=== PATIENT | male | born 1940 | race African-American/Black ===

== ENCOUNTER 2020-11-11 09:32 | Inpatient (IN) | payer MEDICARE ==
[~2020-11-11] VITALS: Ht 188 cm; Wt 81.6 kg
[2020-11-11] VITALS (8 sets, daily range): BP systolic 96–148; BP diastolic 55–78
[2020-11-11] MEDS ORDERED: Pantoprazole Inj IVP ONE (09:45)
[2020-11-11 09:53] LABS: BASOPHILS % (AUTO) 1.5 % (0.0-2.0); EOSINOPHILS % (AUTO) 1.9 % (0.0-3.0); HEMATOCRIT 38.1 % (42.0-52.0); HEMOGLOBIN 11.9 G/DL (14.2-18.0); LYMPHOCYTES % (AUTO) 51.1 % (20.0-45.0); MEAN CORPUSCULAR VOLUME 88 FL (80-99); MONOCYTES % (AUTO) 4.9 % (1.0-10.0); NEUTROPHILS % (AUTO) 40.6 % (45.0-75.0); PLATELET COUNT 253 K/UL (150-450); RED BLOOD COUNT 4.31 M/UL (4.70-6.10); RED CELL DISTRIBUTION WIDTH 15.9 % (11.6-14.8); WHITE BLOOD COUNT 7.6 K/UL (4.8-10.8)
[2020-11-11] MEDS ORDERED: PROSCAR5 MG ORAL (10:02)
[2020-11-11] MEDS ORDERED: ASPIRIN81 MG ORAL (10:02)
[2020-11-11] MEDS ORDERED: LOSARTAN POTASS50 MG ORAL (10:02)
[2020-11-11] MEDS ORDERED: AMLODIPINE BESY10 MG ORAL (10:02)
[2020-11-11] MEDS ORDERED: LEVETIRACETAM500 MG ORAL (10:02)
[2020-11-11] MEDS ORDERED: ACETAMINOPHEN325 M1 ORAL (10:02)
[2020-11-11 10:06] LABS: CALCIUM 8.8 MG/DL (8.5-10.1); CREATININE 2.6 MG/DL (0.55-1.30); POTASSIUM 4.1 MMOL/L (3.5-5.1)
[2020-11-11 10:10] LABS: ALBUMIN 2.5 G/DL (3.4-5.0); ALBUMIN/GLOBULIN RATIO 0.6 (1.0-2.7); BILIRUBIN,TOTAL 0.3 MG/DL (0.2-1.0)
--- NOTE | 2020-11-11 10:27 | Emergency Room Report ---
History of Present Illness General Chief Complaint: General Complaint Source: Patient, Medical Record, EMS Present Illness HPI 79-year-old male presents for evaluation. [facility] with rectal bleeding and coffee-ground emesis. Bright red blood per rectum per nursing. Patient confused per baseline. No signs of distress on arrival. No chest pain or shortness of breath. No active vomiting. No history of blood thinners. Aggravating or relieving factors. No other associated symptoms Allergies: Coded Allergies: CODEINE (Verified Allergy, Unknown, 11/11/20) COVID-19 Screening Contact w/high risk pt: No Experienced COVID-19 symptoms?: No COVID-19 Testing performed BELT CLEANER: No Patient History Past Medical History: none Past Surgical History: none Pertinent Family History: none Social History: Denies: smoking, alcohol use, drug use Immunizations: UTD Reviewed Nursing Documentation: PMH: Agreed; PSxH: Agreed Review of Systems All Other Systems: negative except mentioned in HPI Physical Exam Vital Signs Date Time Temp Pulse Resp B/P (MAP) Pulse Ox O2 Delivery O2 Flow Rate FiO2 11/11/20 09:47 97.9 58 18 87/61 (70) 98 Room Air Sp02 EP Interpretation: reviewed, normal General Appearance: no apparent distress, non-toxic, other - confused Head: normocephalic, atraumatic Eyes: bilateral eye normal inspection, bilateral eye PERRL ENT: hearing grossly normal, normal pharynx, no angioedema, normal voice Neck: full range of motion, supple/symm/no masses Respiratory: chest non-tender, lungs clear, normal breath sounds, speaking full sentences Cardiovascular #1: regular rate, rhythm, no edema Cardiovascular #2: 2+ carotid (R), 2+ carotid (L), 2+ radial (R), 2+ radial (L), 2+ dorsalis pedis (R), 2+ dorsalis pedis (L) Gastrointestinal: normal bowel sounds, non tender, soft, non-distended, no guarding, no rebound Rectal: deferred Genitourinary: normal inspection, no CVA tenderness Musculoskeletal: back normal, normal range of motion, gait/station normal, non- tender Neurologic: other - Confused Psychiatric: other - Confused Reflexes: 3+ bicep (R), 3+ bicep (L), 3+ tricep (R), 3+ tricep (L), 3+ knee (R), 3+ knee (L) Skin: other - see nursing notes Lymphatic: no adenopathy Medical Decision Making Diagnostic Impression: Primary Impression: GI bleed Qualified Codes: K92.2 - Gastrointestinal hemorrhage, unspecified Additional Impression: Renal failure Qualified Codes: N19 - Unspecified kidney failure ER Course Hospital Course 79-year-old male presents with bright red blood per rectum, coffee-ground emesis Differential diagnoses include: UGIB, LGIB, hemorrhoids Clinical course Patient placed on stretcher. patient monitor. After initial history and physical I ordered labs, IV fluids, UA Labs - no leukocytosis, Hb/Hct stable. BUN/Cr elevated. UA unremarkable EKGsinus bradycardia no acute ischemic changes interpreted by me With IV fluids. Given Protonix. Given Zofran. Case discussed with Dr. Nur and he agreed to accept the patient to his service for further care and support I feel this is a highly complex case requiring extensive working including EKG/ Rhythm strip, Xray/CT/US, Blood/urine lab work, repeat exams while in ED, and administration of strong opiates/narcotics for pain control, admission to hospital or close patient follow up. Diagnosis - GI Bleed, Renal failure Patient admitted to telemetry in serious condition Laboratory Tests Test 11/11/20 09:41 11/11/20 11:10 White Blood Count 7.6 K/UL (4.8-10.8) Red Blood Count 4.31 M/UL (4.70-6.10) L Hemoglobin 11.9 G/DL (14.2-18.0) L Hematocrit 38.1 % (42.0-52.0) L Mean Corpuscular Volume 88 FL (80-99) Mean Corpuscular Hemoglobin 27.5 PG (27.0-31.0) Mean Corpuscular Hemoglobin Concent 31.1 G/DL (32.0-36.0) L Red Cell Distribution Width 15.9 % (11.6-14.8) H Platelet Count 253 K/UL (150-450) Mean Platelet Volume 7.0 FL (6.5-10.1) Neutrophils (%) (Auto) 40.6 % (45.0-75.0) L Lymphocytes (%) (Auto) 51.1 % (20.0-45.0) H Monocytes (%) (Auto) 4.9 % (1.0-10.0) Eosinophils (%) (Auto) 1.9 % (0.0-3.0) Basophils (%) (Auto) 1.5 % (0.0-2.0) Sodium Level 142 MMOL/L (136-145) Potassium Level 4.1 MMOL/L (3.5-5.1) Chloride Level 107 MMOL/L (98-107) Carbon Dioxide Level 25 MMOL/L (21-32) Anion Gap 10 mmol/L (5-15) Blood Urea Nitrogen 43 mg/dL (7-18) H Creatinine 2.6 MG/DL (0.55-1.30) H Estimat Glomerular Filtration Rate 23.9 mL/min (>60) Glucose Level 145 MG/DL (74-106) H Calcium Level 8.8 MG/DL (8.5-10.1) Total Bilirubin 0.3 MG/DL (0.2-1.0) Aspartate Amino Transf (AST/SGOT) 16 U/L (15-37) Alanine Aminotransferase (ALT/SGPT) 22 U/L (12-78) Alkaline Phosphatase 61 U/L (46-116) Troponin I 0.019 ng/mL (0.000-0.056) Total Protein 7.0 G/DL (6.4-8.2) Albumin 2.5 G/DL (3.4-5.0) L Globulin 4.5 g/dL Albumin/Globulin Ratio 0.6 (1.0-2.7) L Lipase 167 U/L (73-393) Prothrombin Time 11.8 SEC (9.30-11.50) H Prothromb Time International Ratio 1.1 (0.9-1.1) Activated Partial Thromboplast Time 28 SEC (23-33) EKG Diagnostic Results Troponin ordered: Yes Rate: bradycardiac Rhythm: NSR ST Segments: no acute changes Rhythm Strip Diag. Results EP Interpretation: yes Rhythm: NSR, no PVC's, no ectopy Last Vital Signs Date Time Temp Pulse Resp B/P (MAP) Pulse Ox O2 Delivery O2 Flow Rate FiO2 11/11/20 10:09 62 18 99/55 98 Room Air 11/11/20 09:47 97.9 Status: improved Disposition: ADMITTED INPATIENT Condition: Serious Loy Saxena MD Nov 11, 2020 10:27
--- NOTE | 2020-11-11 10:39 | NUR ---
Patient presented to the ER via EMS for evaluation from a [facility] facility. They reported that he started vomiting blood this morning. He reports with coffee ground emesis and retal bleeding. Patient confused per baseline. No signs of distress on arrival. No chest pain or shortness of breath. No active vomiting. No history of blood thinners. No aggravating or relieving factors.
--- NOTE | 2020-11-11 10:41 | NUR ---
lab called, blue top hemolyzed. new one redrawn and sent to lab. pt on continuous cardiac/O2 monitor. VSS. will continue to monitor.
[2020-11-11 11:33] LABS: INR 1.1 (0.9-1.1)
[2020-11-11] MEDS: D5NS 1,000 ML IV SCH ×3 (13:51→21:31)
--- NOTE | 2020-11-11 13:51 | Consultation ---
History of Present Illness General Date patient seen: Nov 11, 2020 Reason for Hospitalization: General Complaint Present Illness HPI 79-year-old very pleasant male presented to [facility] from care facility identified to have coffee-ground emesis and GI bleed. Hemoglobin noted. Abdominal exam as below. Surgery called to evaluate for GI bleed and assist with care. Patient seen, patient evaluated, chart reviewed. states he is well. no complaints no n/v/f/c abd pain neg chest pain neg Allergies: Coded Allergies: CODEINE (Verified Allergy, Unknown, 11/11/20) COVID-19 Screening Contact w/high risk pt: No Experienced COVID-19 symptoms?: No Medication History Scheduled Amlodipine Besylate* (Amlodipine Besylate*), 10 MG ORAL DAILY, (Reported) Aspirin* (Aspirin*), 81 MG ORAL DAILY, (Reported) Finasteride* (Proscar*), 5 MG ORAL DAILY, (Reported) Levetiracetam* (Levetiracetam*), 750 MG ORAL TWICE A DAY, (Reported) Losartan Potassium* (Losartan Potassium*), 100 MG ORAL DAILY, (Reported) Scheduled PRN Acetaminophen* (Acetaminophen 325MG Tablet*), 650 MG ORAL Q4H PRN for Pain Scale (3-5), (Reported) Patient History Limited by: medical condition History Provided By: Medical Record, PMD Healthcare decision maker Resuscitation status Advanced Directive on File Past Medical/Surgical History Past Medical/Surgical History: (1) Renal failure (2) GI bleed Review of Systems Review of Symptoms -J-s-e-e-r-a-l- -R-O-S-:- -n-o- -w-e--i-g-h-t- -l-o-s-s- -o-r- -f-e-v-e-r- -L-k-z-r-u-a-v-w-i-i-c-a-l- -R-O-S-:- -n-o- -q-q-i-q-r-q-s-i-o-n- -o-r- -m-o-o-d- -w-i-l-n-g-e-s-,- -n-o- -p-b-s-o-r-y- -l-o-s-s- -Z-w-r--k-i-y-l-m-i-c- -R-O-S-:- -n-o- -z-x-s-u-a-l- -z-y-b-n-g-e-s- -o-r- -e-y-e- -r-t-h-b-r-z-t-i-o-n- -E-N-T- -R-O-S-:- -n-o- -n-a-s-a-l- -c-n-d-r-h-p-t-i-o-n-,- -n-j-f-r-i-n-g- -l- -o-s-s-,- -r-o-c-r-k-b-e-s-s- -C-z-s-e-r-g-y- -a-n-d- -M-f-i-q-p-b-l-o-g-y- -R-O-S-:- -n-o- -g-i-d-e-r-g-i-c- -e-s-q-p-t-o-m-s- -o-r- -b-t-e-u-t-g-r-i-a- -L-v-s-e-e-q-b-w-j-i--c-a-l- -a-n-d- -P-b-h-r-h-i-t-i-c- -R-O-S-:- -n-o- -x-o-h-l-l-e-n- -b-o-u-n-d-s-,- -y-y-f-s-u-a-l- -u-e-y-e-d-i-n-g- -o-r- -v-t-j-i-s-i-n-g- -S-j-u-g-r-x-i-n-e- -R-O-S-:- -n-o- -g-s-i-y-u-r-i-a-,- -k-f-s-p-u-c-p-s-i-a-,- -n-t-q-g-h-t- -g-l-t-n-g-e-s-,- -e-u-u-x-m-c-a-t-u-r-e- -r-h-e-d-o-g-r-a-n-c-e- -C-k-w-m-x-q-a-t-o-r-y- -R-O-S-:- -n-o- -c-o-u-g-h-,- -l-n-o-p-d-p-e-s-s- -o--f- -e-j-s-a-t-h-,- -o-r- -z-l-r-e-z-i-n-g- -X-i-y-g-d-q-n-x-z-c-u-l-a-r- -R-O-S-:- -n-o- -c-h-e-s-t- -p-a-i-n- -o-r- -r-a-e-p-n-e-a- -o-n- -g-k-o-r-t-i-o-n- -K-q-s-c-f-v-i-n--p-c-p-t-i-n-a-l- -R-O-S-:- -b-p-t-i-e-s- -n-t-l-f-r-h-n-a-l- -p-a-i-n-,- -u-b-k-g-h-t- -r-e-d- -b-l-o-o-d- -i-n- -s-t-o-o-l-.- -H-k-i-a-a-m-v-n-e-h-x-e-t-a-l- -R-O-S-:- -n-o- -m-t-k-l-g-i-a-s- -o-r- -o-j-q-b-h-c-l-g-i-a-s- -O-d-q-z-c-c-k-h-x-c-a-l- -R-O-S-:- -n-o- -T-I-A- -o-r- -q-l-z-o-k-e- -g-j-t-p-t-o-m-s- -H-g-h-o-x-b-g-d-h-g-i-c-a-l- -R-O-S-:- -n-o- -n-e-w- -o-r- -e-j-m-n-g-i-n-g- -s-k-i-n- -x-s-j-i-o-n-s-,- -u-y-g-h-e-s- -o-r- -j-m-i-r-i-t-i-s- limited given condition Physical Exam Physical Exam General appearance: alert, cooperative, no distress, appears stated age Head: Normocephalic, without obvious abnormality, atraumatic Eyes: conjunctivae/corneas clear. PERRL, EOM's intact. Fundi benign Throat: Lips, mucosa, and tongue normal. Teeth and gums normal Neck: supple, symmetrical, trachea midline, no adenopathy, thyroid: not enlarged, symmetric, no tenderness/mass/nodules, no carotid bruit and no JVD Lungs: clear to auscultation bilaterally Heart: regular rate and rhythm, S1, S2 normal, no murmur, click, rub or gallop Abdomen: soft, non-tender. Bowel sounds normal. No masses, no organomegaly Extremities: extremities normal, atraumatic, no cyanosis or edema Pulses: 2+ and symmetric Skin: Skin color, texture, turgor normal. No rashes or lesions Neurologic: Grossly normal Last 24 Hour Vital Signs Date Time Temp Pulse Resp B/P (MAP) Pulse Ox O2 Delivery O2 Flow Rate FiO2 11/11/20 12:50 110/62 95 Room Air 11/11/20 12:05 61 101/64 11/11/20 11:01 98.4 60 96/60 11/11/20 10:09 62 18 99/55 98 Room Air 11/11/20 09:47 97.9 58 18 87/61 (70) 98 Room Air Laboratory Tests Test 11/11/20 09:41 11/11/20 11:10 White Blood Count 7.6 K/UL (4.8-10.8) Red Blood Count 4.31 M/UL (4.70-6.10) L Hemoglobin 11.9 G/DL (14.2-18.0) L Hematocrit 38.1 % (42.0-52.0) L Mean Corpuscular Volume 88 FL (80-99) Mean Corpuscular Hemoglobin 27.5 PG (27.0-31.0) Mean Corpuscular Hemoglobin Concent 31.1 G/DL (32.0-36.0) L Red Cell Distribution Width 15.9 % (11.6-14.8) H Platelet Count 253 K/UL (150-450) Mean Platelet Volume 7.0 FL (6.5-10.1) Neutrophils (%) (Auto) 40.6 % (45.0-75.0) L Lymphocytes (%) (Auto) 51.1 % (20.0-45.0) H Monocytes (%) (Auto) 4.9 % (1.0-10.0) Eosinophils (%) (Auto) 1.9 % (0.0-3.0) Basophils (%) (Auto) 1.5 % (0.0-2.0) Sodium Level 142 MMOL/L (136-145) Potassium Level 4.1 MMOL/L (3.5-5.1) Chloride Level 107 MMOL/L (98-107) Carbon Dioxide Level 25 MMOL/L (21-32) Anion Gap 10 mmol/L (5-15) Blood Urea Nitrogen 43 mg/dL (7-18) H Creatinine 2.6 MG/DL (0.55-1.30) H Estimat Glomerular Filtration Rate 23.9 mL/min (>60) Glucose Level 145 MG/DL (74-106) H Calcium Level 8.8 MG/DL (8.5-10.1) Total Bilirubin 0.3 MG/DL (0.2-1.0) Aspartate Amino Transf (AST/SGOT) 16 U/L (15-37) Alanine Aminotransferase (ALT/SGPT) 22 U/L (12-78) Alkaline Phosphatase 61 U/L (46-116) Troponin I 0.019 ng/mL (0.000-0.056) Total Protein 7.0 G/DL (6.4-8.2) Albumin 2.5 G/DL (3.4-5.0) L Globulin 4.5 g/dL Albumin/Globulin Ratio 0.6 (1.0-2.7) L Lipase 167 U/L (73-393) Prothrombin Time 11.8 SEC (9.30-11.50) H Prothromb Time International Ratio 1.1 (0.9-1.1) Activated Partial Thromboplast Time 28 SEC (23-33) Height (Feet): 6 Height (Inches): 2.00 Weight (Pounds): 180 Medications Current Medications Medications (Trade) Dose Ordered Sig/Lonnie Route PRN Reason Start Time Stop Time Status Last Admin Dose Admin Dextrose/Sodium Chloride 1,000 ml @ 100 mls/hr Q10H IV 11/11/20 18:00 12/11/20 17:59 Pantoprazole (Protonix) 40 mg EVERY 12 HOURS IVP 11/11/20 21:00 12/11/20 20:59 Assessment/Plan Problem List: (1) Renal failure ICD Codes: N19 - Unspecified kidney failure SNOMED: 55823769 Qualifiers: Qualified Codes: N19 - Unspecified kidney failure (2) GI bleed Assessment & Plan: 79-year-old male with possible GI bleed. Coffee-ground emesis. Hemoglobin noted. Exam fairly benign. Currently no nausea vomiting fever chills. GI eval for possible upper and lower scope. Trend labs. PRBC as needed. Imaging noted. No acute surgical intervention planned at this time. We will follow the recommendations and available in the event bleeding ongoing and requires intervention. ICD Codes: K92.2 - Gastrointestinal hemorrhage, unspecified SNOMED: 25801396 Qualifiers: Qualified Codes: K92.2 - Gastrointestinal hemorrhage, unspecified Kei Love Nov 11, 2020 13:51
--- NOTE | 2020-11-11 13:56 | History & Physical ---
History and Physical History & Physicial Patient ECF resident was transferred to emergency room for GI bleed Emergency room note: 79-year-old male presents for evaluation. Brought in from care home facility with rectal bleeding and coffee-ground emesis. Bright red blood per rectum per nursing. Patient confused per baseline. No signs of distress on arrival. No chest pain or shortness of breath. No active vomiting. No history of blood thinners. Aggravating or relieving factors. No other associated symptoms Allergies: CODEINE (Verified Allergy, Unknown, 11/11/20) COVID-19 Screening Contact w/high risk pt: No Experienced COVID-19 symptoms?: No COVID-19 Testing performed INVESTMENT FUND MANAGER: No Vital Signs Date Time Temp Pulse Resp B/P (MAP) Pulse Ox O2 Delivery O2 Flow Rate FiO2 11/11/20 09:47 97.9 58 18 87/61 (70) 98 Room Air GI bleed upper and lower BPH CKD Diabetes mellitus Seizure disorder Cardiomegaly N.p.o. except medication IV hydration Kidney ultrasound Anemia work-up IV Protonix Urine studies Hold losartan and other blood pressure medication Hold aspirin Keppra IV GI, GS consultation Per orders # [id number] Moses Tam MD Nov 11, 2020 13:56
[2020-11-11] MEDS ORDERED: Varibar Pudding 230ml MC PRN (14:00)
[2020-11-11] MEDS ORDERED: Varibar Honey 250ml MC PRN (14:00)
[2020-11-11] MEDS ORDERED: Varibar Thin Liquid powder 148gm MC PRN (14:00)
[2020-11-11] MEDS ORDERED: Varibar Nectar 240ml MC PRN (14:00)
[2020-11-11 15:39] LABS: APPEARANCE,URINE CLEAR; BILIRUBIN, URINE NEGATIVE (NEGATIVE); COLOR,URINE PALE YELLOW; GLUCOSE, URINE (UA) NEGATIVE (NEGATIVE); KETONES,URINE NEGATIVE (NEGATIVE); LEUKOCYTE ESTERASE ,URINE 1+ (NEGATIVE); NITRITE,URINE NEGATIVE (NEGATIVE); PH,URINE 5 (4.5-8.0); PROTEIN,URINE 4+ (NEGATIVE); UROBILINOGEN,URINE NORMAL MG/DL (0.0-1.0)
--- NOTE | 2020-11-11 15:40 | NUR ---
Called to give report for transferring patient. Nurse is at lunch. Told to call back in 30 mins @ 1610
--- NOTE | 2020-11-11 15:44 | Consultation ---
DATE OF CONSULTATION: 11/11/2020 CONSULTING PHYSICIAN: Gael Mcleod MD CHIEF COMPLAINT: Rectal bleeding and coffee-grounds emesis. HISTORY OF PRESENT ILLNESS: This is an 79[facility] patient who was brought for above complaint. Patient is confused at baseline, unable to give any history. PAST MEDICAL HISTORY: Significant for history of dementia. That is all I can obtain from him. ALLERGIES: To codeine. MEDICATIONS: Please see medication reconciliation list. SOCIAL HISTORY: [facility]. No history of tobacco, alcohol, or drug abuse. FAMILY HISTORY: Noncontributory. REVIEW OF SYSTEMS: Unable to obtain. PHYSICAL EXAMINATION: VITAL SIGNS: Temperature is 98.4, pulse is 65, respirations 20, blood pressure is 100/59. HEENT: Normocephalic, atraumatic. Mild pale conjunctivae. NECK: Supple. No evidence of obvious lymphadenopathy. CARDIOVASCULAR: Regular rate and rhythm. Plus S1, S2. LUNGS: Decreased breath sounds bilaterally based on supine exam. ABDOMEN: Soft, nontender. No rebound. No guarding. No peritoneal sign. EXTREMITIES: No cyanosis, no clubbing, no edema. LABORATORY DATA: White count is 7, hemoglobin 11, hematocrit 38, platelet count is 253. Creatinine is 2.6. ASSESSMENT AND PLAN: This is an 79-year-old male admitted with admission diagnoses of rectal bleeding and coffee-grounds emesis, renal insufficiency, mild anemia, hypoalbuminemia. Plan, patient to be prepped for endoscopy and colonoscopy tomorrow. Monitor hemoglobin and hematocrit. Transfuse as needed to keep hemoglobin above 7. PPI b.i.d. I want to thank, Dr. Tam, for this kind referral. Gael Mcleod M.D. DR: CHANTE JOB#: [id number] CC: Moses Tam M.D.
--- NOTE | 2020-11-11 15:48 | Consultation ---
Consult Note Consult Note DATE OF CONSULTATION: 11/11/2020 CONSULTING PHYSICIAN: James South MD. ATTENDING PHYSICIAN: Dr. Nur REASON FOR CONSULTATION: Abnormal chest x-ray HISTORY OF PRESENT ILLNESS: This is an 79-year-old male with past medical history of BPH, CKD, diabetes mellitus, seizure disorder, and cardiomegaly, who presented to ED from [facility] for evaluation of rectal bleeding and coffee-ground emesis. Patient is reported to be confused at baseline. Initial laboratory studies revealed no leukocytosis, stable H&H, elevated BUN/creatinine and unremarkable urinalysis. EKG showed sinus bradycardia without acute ischemic changes. Patient was given IV fluids, Protonix, and Zofran. Patient is awaiting admission in the ER. PAST MEDICAL HISTORY: BPH, CKD, diabetes mellitus, seizure disorder, cardiomegaly MEDICATIONS: Acetaminophen, amlodipine, aspirin, finasteride, levetiracetam, losartan ALLERGIES: Codeine FAMILY HISTORY: Unknown PERSONAL/SOCIAL HISTORY: Resident of [facility] REVIEW OF SYSTEMS: Unreliable PHYSICAL EXAMINATION: VITAL SIGNS: Blood pressure 100/69, heart rate 65, respiratory rate 18, weight 81 kg, height 188 cm. General: Patient laying in bed, normal work of breathing on room air, NAD HEENT: Head exam reveals that the head is normocephalic, atraumatic without deformity or unusual swelling. Pupils are PERRLA. CHEST AND LUNGS: Reveals clear, normal, symmetrical breath sounds with no adventitious sounds. CARDIOVASCULAR: Reveals normal S1, S2 without murmurs, rubs, or clicks. ABDOMEN: Soft with no tenderness or organomegaly. RECTAL: Deferred. MUSCULOSKELETAL: There is no tenderness to palpation. Range of motion is normal. NEUROLOGICAL: Confused at baseline LABORATORY DATA: Laboratory testing shows hemoglobin 11.9, hematocrit 38.1. Chemistries show BUN 43, creatinine 2.6, glucose 145 Urinalysis pending Assessment/Plan 1. History of seizure disorder and risk for aspiration -Continue Keppra -Monitor for fever - f/u chest x-ray if indicated 2.Diabetes mellitus with hyperglycemia -BG control 3. Renal failure -Per primary 4. GI bleeding - s/p Zofran, Protonix 5. CXR - Lucency under the L hemidiaphragm, suspect gastric distension - monitor The care for this patient was discussed with my supervising physician. Time spent for this case was approximately 31 minutes. Brenden Patel Nov 11, 2020 15:48
[2020-11-11] MEDS ORDERED: Polyethylene Glycol 238gm bottle ORAL SCH (16:00)
--- NOTE | 2020-11-11 16:12 | NUR ---
Called to give report for patient transferring to 220-1. Told that the nurse is still at lunch. Will attempt again in 10 mins
--- NOTE | 2020-11-11 17:30 | NUR ---
NURSE NOTES: pt admitted to unit in stable condition. pt is not bleeding. pt non verbal but able to follow commands. pt on desk monitor no signs of cardiac or respiratory distress at this time. Bed in lowest condition. and locked. side rails padded. in room air. skin intact. Pt is NPO
--- NOTE | 2020-11-11 18:17 | Diagnostic Imaging Report ---
Indication: Cough Technique: One view of the chest Comparison: none Findings: The lungs and pleural spaces are clear. The heart size is normal. The aorta is tortuous. Impression: No acute process
[2020-11-11] MEDS: D5 1/2NS w/KCl 20mEq 1,000 ML IV SCH (18:18)
[2020-11-11] MEDS: Docusate 100mg cap ORAL SCH (18:18)
--- NOTE | 2020-11-11 18:43 | Diagnostic Imaging Report ---
Indication: Acute renal failure Technique: Grayscale and duplex images of the kidneys, retroperitoneum, and bladder were obtained. Comparison: none Findings: Right kidney measures 13 cm in length. Left kidney measures 9.5 cm in length. Both kidneys demonstrate increased echogenicity. No hydronephrosis. There are bilateral renal cysts. Normal inferior vena cava. Bladder is normal. The prostate is enlarged, calculated volume 90 mL Impression: Bilateral echogenic kidneys, likely medical renal disease Negative for hydronephrosis Prostatomegaly Incidental finding of bilateral renal cysts.
--- NOTE | 2020-11-11 19:35 | NUR ---
NURSE NOTES: Important Events on Shift: Received report from Amy Gary RN. Pt in bed, awake, non-verbal. No signs or symptoms of distress noted at this time. Patient Status: FULL CODE Diet: NPO @ 0000 Pending Orders: EGD, Colonoscopy in AM Pending Results/Labs: bmp Pending MD notification: none Latest Vital Signs: Temperature 97.9 , Pulse 74 , B/P 123 /78 , Respiratory Rate 20 , O2 SAT 97 , Room Air, O2 Flow Rate . Vital Sign Comment: Per report, stable throughout shift. EKG Rhythm: Sinus Rhythm Rhythm change?: N MD Notified?: - MD Response: - Latest Hernandez Fall Score: 50 Fall Risk: High Risk Safety Measures: Call light Within Reach, Bed Alarm Zone 1, Side Rails Side Rails x3, Bed position Low and Locked. Fall Precautions: Yellow Socks, Yellow Gown, Door Sign, Patient Fall Education
--- NOTE | 2020-11-11 21:15 | NUR ---
NURSE HAND-OFF REPORT: Important Events on Shift:[]npo for EGD/ colonoscopy. Taking miralax Patient Status: []full Diet: []NPO Pending Orders: [] Pending Results/Labs:[] Pending MD notification:[] Latest Vital Signs: Temperature 97.6 , Pulse 77 , B/P 128 /78 , Respiratory Rate 16 , O2 SAT 97 , Room Air, O2 Flow Rate . Vital Sign Comment: [] EKG Rhythm: Sinus Rhythm Rhythm change?: MD Notified?: - MD Response: Latest Hernandez Fall Score: Fall Risk: Safety Measures: Call light Within Reach, Bed Alarm Zone 2, Side Rails Side Rails x2, Bed position Low and Locked. Fall Precautions: Yellow Socks y Yellow Gown y Door Sign y Patient Fall Education Report given to []. Ben/jose
[2020-11-11] MEDS: Pantoprazole Inj IVP SCH (21:41)
[2020-11-11] MEDS: levETIRAcetam 500mg/NS100ml 100 ML IVPB SCH (21:41)
[2020-11-12] VITALS (13 sets, daily range): BP systolic 107–125; BP diastolic 54–78
[2020-11-12] MEDS: D5 1/2NS w/KCl 20mEq 1,000 ML IV SCH ×2 (05:50→14:01)
--- NOTE | 2020-11-12 06:51 | NUR ---
NURSE HAND-OFF REPORT: Important Events on Shift: Pt to have EGD with colonoscopy. Unable to obtain consents because unable to reach family. Patient Status: full code Diet: NPO Pending Orders: EGD Pending Results/Labs: CBC, BMP Pending MD notification: none Latest Vital Signs: Temperature 97.9 , Pulse 74 , B/P 123 /78 , Respiratory Rate 20 , O2 SAT 97 , Room Air, O2 Flow Rate . Vital Sign Comment: stable throughout shift EKG Rhythm: Sinus Rhythm Rhythm change?: N MD Notified?: - MD Response: Latest Hernandez Fall Score: 50 Fall Risk: High Risk Safety Measures: Call light Within Reach, Bed Alarm Zone 1, Side Rails Side Rails x3, Bed position Low and Locked. Fall Precautions: Yellow Socks, Yellow Gown, Door Sign, Patient Fall Education Report to be given to Amy Gary RN
[2020-11-12 07:39] LABS: BASOPHILS % (AUTO) 0.6 % (0.0-2.0); EOSINOPHILS % (AUTO) 0.7 % (0.0-3.0); HEMATOCRIT 32.1 % (42.0-52.0); HEMOGLOBIN 10.1 G/DL (14.2-18.0); LYMPHOCYTES % (AUTO) 19.2 % (20.0-45.0); MEAN CORPUSCULAR VOLUME 88 FL (80-99); NEUTROPHILS % (AUTO) 71.4 % (45.0-75.0); PLATELET COUNT 202 K/UL (150-450); RED BLOOD COUNT 3.65 M/UL (4.70-6.10); RED CELL DISTRIBUTION WIDTH 15.6 % (11.6-14.8); WHITE BLOOD COUNT 8.3 K/UL (4.8-10.8)
[2020-11-12 08:12] LABS: ALANINE AMINOTRANSFERASE 18 U/L (12-78); ALBUMIN 2.7 G/DL (3.4-5.0); ALBUMIN/GLOBULIN RATIO 0.6 (1.0-2.7); ALKALINE PHOSPHATASE 49 U/L (46-116); ANION GAP 7 mmol/L (5-15); ASPARTATE AMINO TRANSFERASE 15 U/L (15-37); BILIRUBIN,TOTAL 0.6 MG/DL (0.2-1.0); BLOOD UREA NITROGEN 55 mg/dL (7-18); CALCIUM 8.6 MG/DL (8.5-10.1); CARBON DIOXIDE 26 MMOL/L (21-32); CHLORIDE 113 MMOL/L (98-107); CHOLESTEROL 142 MG/DL (< 200); CREATININE 2.4 MG/DL (0.55-1.30); FERRITIN 345 NG/ML (8-388); GAMMA GLUTAMYL TRANSPEPTIDASE 11 U/L (5-85); HDL CHOLESTEROL 46 MG/DL (40-60); PHOSPHORUS 2.7 MG/DL (2.5-4.9); POTASSIUM 4.4 MMOL/L (3.5-5.1); SODIUM 146 MMOL/L (136-145); TRIGLYCERIDES 100 MG/DL (30-150)
[2020-11-12 08:20] LABS: IRON 29 ug/dL (50-175); TOTAL IRON BINDING CAPACITY 149 ug/dL (250-450)
[2020-11-12 08:28] LABS: % IRON SATURATION 19 % (15-50)
[2020-11-12] MEDS: D5NS 1,000 ML IV SCH (08:53)
[2020-11-12] MEDS: Docusate 100mg cap ORAL SCH ×3 (09:03→18:17)
[2020-11-12] MEDS: Pantoprazole Inj IVP SCH ×2 (09:03→20:45)
[2020-11-12] MEDS: levETIRAcetam 500mg/NS100ml 100 ML IVPB SCH ×2 (09:04→20:47)
--- NOTE | 2020-11-12 09:12 | Pre-Procedure Note/Attestation ---
Pre-Procedure Note/Attestation Complete Prior to Procedure Planned Procedure: not applicable Procedure Narrative: esophagogastroduodenoscopy and colonoscopy Indications for Procedure Pre-Operative Diagnosis: gib Attestation I attest that I discussed the nature of the procedure; its benefits; risks and complications; and alternatives (and the risks and benefits of such alternatives), prior to the procedure, with the patient (or the patient's legal risk control representative). I attest that, if there was a reasonable possibility of needing a blood transfusion, the patient (or the patient's legal risk control representative) was given the [facility] standardized written summary, pursuant to the [place] Blood Safety Act ([place] Health and Safety Code # 1645, as amended). I attest that I re-evaluated the patient just prior to the surgery and that there has been no change in the patient's H&P, except as documented below: Gael Mcleod MD Nov 12, 2020 09:12
--- NOTE | 2020-11-12 09:44 | Pulmonology Progress Note ---
Subjective ROS Limited/Unobtainable: Yes Interval Events: none major reported per nursing Constitutional: Reports: no symptoms HEENT: Repors: no symptoms Respiratory: Reports: no symptoms Cardiovascular: Reports: no symptoms Gastrointestinal/Abdominal: Reports: no symptoms Allergies: Coded Allergies: CODEINE (Verified Allergy, Unknown, 11/11/20) Objective Last 24 Hour Vital Signs Date Time Temp Pulse Resp B/P (MAP) Pulse Ox O2 Delivery O2 Flow Rate FiO2 11/12/20 04:00 63 11/12/20 04:00 97.9 74 20 123/78 (93) 97 11/12/20 00:00 66 11/12/20 00:00 95.6 74 20 125/73 (90) 97 11/11/20 21:00 Room Air 11/11/20 20:00 96.0 70 20 128/74 (92) 97 11/11/20 20:00 60 11/11/20 20:00 Room Air 11/11/20 17:00 97.6 72 16 128/78 97 Room Air 77 11/11/20 16:38 97.6 72 16 128/78 97 Room Air 11/11/20 16:37 77 18 148/78 100 Room Air 11/11/20 14:55 65 100/69 11/11/20 12:50 110/62 95 Room Air 11/11/20 12:05 61 101/64 11/11/20 11:01 98.4 60 96/60 11/11/20 10:09 62 18 99/55 98 Room Air 11/11/20 09:47 97.9 58 18 87/61 (70) 98 Room Air Intake and Output 11/11/20 11/12/20 19:00 07:00 Output Total 1000 ml Balance -1000 ml Output Urine Total 1000 ml # Bowel Movements 1 General Appearance: no acute distress HEENT: atraumatic Respiratory: lungs clear Cardiovascular: normal rate, regular rhythm Abdomen: soft, non tender Laboratory Tests 11/11/20 11:10: Prothrombin Time 11.8H, Prothromb Time International Ratio 1.1, Activated Partial Thromboplast Time 28 11/11/20 15:09: Urine Color Pale yellow, Urine Appearance Clear, Urine pH 5, Urine Specific [place] 1.020, Urine Protein 4+H, Urine Glucose (UA) Negative, Urine Ketones Negative, Urine Blood 1+H, Urine Nitrite Negative, Urine Bilirubin Negative, Urine Urobilinogen Normal, Urine Leukocyte Esterase 1+H, Urine RBC 0-2H, Urine WBC 0-2, Urine Squamous Epithelial Cells Few, Urine Bacteria Occasional, Urine Random Sodium < 20L 11/12/20 07:11: White Blood Count 8.3, Red Blood Count 3.65L, Hemoglobin 10.1L, Hematocrit 32.1L , Mean Corpuscular Volume 88, Mean Corpuscular Hemoglobin 27.7, Mean Corpuscular Hemoglobin Concent 31.5L, Red Cell Distribution Width 15.6H, Platelet Count 202, Mean Platelet Volume 6.9, Neutrophils (%) (Auto) 71.4, Lymphocytes (%) (Auto) 19.2L, Monocytes (%) (Auto) 8.0, Eosinophils (%) (Auto) 0.7, Basophils (%) (Auto) 0.6, Sodium Level 146H, Potassium Level 4.4, Chloride Level 113H, Carbon Dioxide Level 26, Anion Gap 7, Blood Urea Nitrogen 55H, Creatinine 2.4H, Estimat Glomerular Filtration Rate 31.8, Glucose Level 96, Hemoglobin A1c 6.5H, Uric Acid 6.4, Calcium Level 8.6, Phosphorus Level 2.7, Magnesium Level 1.9, Iron Level 29L, Total Iron Binding Capacity 149L, Percent Iron Saturation 19, Unsaturated Iron Binding 120, Ferritin 345, Total Bilirubin 0.6, Gamma Glutamyl Transpeptidase 11, Aspartate Amino Transf (AST/SGOT) 15, Alanine Aminotransferase (ALT/SGPT) 18, Alkaline Phosphatase 49, Troponin I 0.013, C- Reactive Protein, Quantitative 11.1H, Pro-B-Type Natriuretic Peptide 1336H, Total Protein 6.9, Albumin 2.7L, Globulin 4.2, Albumin/Globulin Ratio 0.6L, Triglycerides Level 100, Cholesterol Level 142, LDL Cholesterol 75, HDL Cholesterol 46, Cholesterol/HDL Ratio 3.1L, Vitamin B12 Level 427, Vitamin D 25- Hydroxy [Pending], 25-Hydroxy Vitamin D2 [Pending], 25-Hydroxy Vitamin D3 [Pending], Folate 3.1L, Thyroid Stimulating Hormone (TSH) 1.237 Current Medications Medications (Trade) Dose Ordered Sig/Lonnie Route PRN Reason Start Time Stop Time Status Last Admin Dose Admin Barium Sulfate (Varibar Honey) 250 ml NOW PRN MC RAD 11/11/20 14:00 11/14/20 13:54 Barium Sulfate (Varibar [place]) 240 ml NOW PRN MC RAD 11/11/20 14:00 11/14/20 13:54 Barium Sulfate (Varibar Pudding) 230 ml NOW PRN MC RAD 11/11/20 14:00 11/14/20 13:54 Barium Sulfate (Varibar Thin Liquid powder) 148 gm NOW PRN MC RAD 11/11/20 14:00 11/14/20 13:54 Dextrose/ Electrolytes 1,000 ml @ 75 mls/hr [id number] IV 11/11/20 16:30 12/11/20 16:29 11/11/20 18:18 Docusate Sodium (Colace) 100 mg THREE TIMES A DAY ORAL 11/11/20 18:00 12/11/20 17:59 11/12/20 09:03 Levetiracetam 100 ml @ 400 mls/hr Q12HR IVPB 11/11/20 21:00 12/11/20 20:59 11/12/20 09:04 Pantoprazole (Protonix) 40 mg EVERY 12 HOURS IVP 11/11/20 21:00 12/11/20 20:59 11/12/20 09:03 Assessment/Plan Assessment/Plan 1. History of seizure disorder and risk for aspiration -Continue Keppra -Monitor for fever - f/u chest x-ray if indicated 2.Diabetes mellitus with hyperglycemia -BG control 3. Renal failure -Per primary 4. GI bleeding - s/p Zofran, Protonix - Scheduled for EGD/Col (11/12) 5. CXR - Lucency under the L hemidiaphragm, suspect gastric distension - monitor The care for this patient was discussed with my supervising physician. Time spent for this case was approximately 31 minutes. Brenden Patel Nov 12, 2020 09:44
--- NOTE | 2020-11-12 11:41 | Surgery Progress Note ---
Surgery Progress Note Subjective Additional Comments h/h stable no n/v no active bleeding gi input noted Objective Last 24 Hour Vital Signs Date Time Temp Pulse Resp B/P (MAP) Pulse Ox O2 Delivery O2 Flow Rate FiO2 11/12/20 04:00 63 11/12/20 04:00 97.9 74 20 123/78 (93) 97 11/12/20 00:00 66 11/12/20 00:00 95.6 74 20 125/73 (90) 97 11/11/20 21:00 Room Air 11/11/20 20:00 96.0 70 20 128/74 (92) 97 11/11/20 20:00 60 11/11/20 20:00 Room Air 11/11/20 17:00 97.6 72 16 128/78 97 Room Air 77 11/11/20 16:38 97.6 72 16 128/78 97 Room Air 11/11/20 16:37 77 18 148/78 100 Room Air 11/11/20 14:55 65 100/69 11/11/20 12:50 110/62 95 Room Air 11/11/20 12:05 61 101/64 I&O Intake and Output 11/11/20 11/12/20 19:00 07:00 Output Total 1000 ml Balance -1000 ml Output Urine Total 1000 ml # Bowel Movements 1 Cardiovascular: RSR Respiratory: decreased breath sounds Abdomen: soft, flat, non-tender, present bowel sounds, non-distended Extremities: no edema, no tenderness, no cyanosis Laboratory Tests Test 11/11/20 15:09 11/12/20 07:11 Urine Color Pale yellow Urine Appearance Clear Urine pH 5 (4.5-8.0) Urine Specific [place] 1.020 (1.005-1.035) Urine Protein 4+ (NEGATIVE) H Urine Glucose (UA) Negative (NEGATIVE) Urine Ketones Negative (NEGATIVE) Urine Blood 1+ (NEGATIVE) H Urine Nitrite Negative (NEGATIVE) Urine Bilirubin Negative (NEGATIVE) Urine Urobilinogen Normal MG/DL (0.0-1.0) Urine Leukocyte Esterase 1+ (NEGATIVE) H Urine RBC 0-2 /HPF (0 - 0) H Urine WBC 0-2 /HPF (0 - 0) Urine Squamous Epithelial Cells Few /LPF (NONE/OCC) Urine Bacteria Occasional /HPF (NONE) Urine Random Sodium < 20 mmol/L (20-110) L White Blood Count 8.3 K/UL (4.8-10.8) Red Blood Count 3.65 M/UL (4.70-6.10) L Hemoglobin 10.1 G/DL (14.2-18.0) L Hematocrit 32.1 % (42.0-52.0) L Mean Corpuscular Volume 88 FL (80-99) Mean Corpuscular Hemoglobin 27.7 PG (27.0-31.0) Mean Corpuscular Hemoglobin Concent 31.5 G/DL (32.0-36.0) L Red Cell Distribution Width 15.6 % (11.6-14.8) H Platelet Count 202 K/UL (150-450) Mean Platelet Volume 6.9 FL (6.5-10.1) Neutrophils (%) (Auto) 71.4 % (45.0-75.0) Lymphocytes (%) (Auto) 19.2 % (20.0-45.0) L Monocytes (%) (Auto) 8.0 % (1.0-10.0) Eosinophils (%) (Auto) 0.7 % (0.0-3.0) Basophils (%) (Auto) 0.6 % (0.0-2.0) Sodium Level 146 MMOL/L (136-145) H Potassium Level 4.4 MMOL/L (3.5-5.1) Chloride Level 113 MMOL/L (98-107) H Carbon Dioxide Level 26 MMOL/L (21-32) Anion Gap 7 mmol/L (5-15) Blood Urea Nitrogen 55 mg/dL (7-18) H Creatinine 2.4 MG/DL (0.55-1.30) H Estimat Glomerular Filtration Rate 31.8 mL/min (>60) Glucose Level 96 MG/DL (74-106) Hemoglobin A1c 6.5 % (4.3-6.0) H Uric Acid 6.4 MG/DL (2.6-7.2) Calcium Level 8.6 MG/DL (8.5-10.1) Phosphorus Level 2.7 MG/DL (2.5-4.9) Magnesium Level 1.9 MG/DL (1.8-2.4) Iron Level 29 ug/dL (50-175) L Total Iron Binding Capacity 149 ug/dL (250-450) L Percent Iron Saturation 19 % (15-50) Unsaturated Iron Binding 120 ug/dL (112-346) Ferritin 345 NG/ML (8-388) Total Bilirubin 0.6 MG/DL (0.2-1.0) Gamma Glutamyl Transpeptidase 11 U/L (5-85) Aspartate Amino Transf (AST/SGOT) 15 U/L (15-37) Alanine Aminotransferase (ALT/SGPT) 18 U/L (12-78) Alkaline Phosphatase 49 U/L (46-116) Troponin I 0.013 ng/mL (0.000-0.056) C-Reactive Protein, Quantitative 11.1 mg/dL (0.00-0.90) H Pro-B-Type Natriuretic Peptide 1336 pg/mL (0-125) H Total Protein 6.9 G/DL (6.4-8.2) Albumin 2.7 G/DL (3.4-5.0) L Globulin 4.2 g/dL Albumin/Globulin Ratio 0.6 (1.0-2.7) L Triglycerides Level 100 MG/DL (30-150) Cholesterol Level 142 MG/DL (< 200) LDL Cholesterol 75 mg/dL (<100) HDL Cholesterol 46 MG/DL (40-60) Cholesterol/HDL Ratio 3.1 (3.3-4.4) L Vitamin B12 Level 427 PG/ML (193-986) Vitamin D 25-Hydroxy Pending 25-Hydroxy Vitamin D2 Pending 25-Hydroxy Vitamin D3 Pending Folate 3.1 NG/ML (8.6-58.9) L Thyroid Stimulating Hormone (TSH) 1.237 uiU/mL (0.358-3.740) Plan Problems: (1) Renal failure (2) GI bleed Assessment & Plan: 79-year-old male with possible GI bleed. Coffee-ground emesis. Hemoglobin noted. Exam fairly benign. Currently no nausea vomiting fever chills. GI eval for possible upper and lower scope. Trend labs. PRBC as needed. Imaging noted. No acute surgical intervention planned at this time. We will follow the recommendations and available in the event bleeding ongoing and requires intervention. Kei Love Nov 12, 2020 11:41
[2020-11-12] MEDS ORDERED: LR 1000ml ONE (11:54)
[2020-11-12] MEDS ORDERED: Metoclopramide 10mg/2ml Inj IVP PRN (12:00)
[2020-11-12] MEDS ORDERED: Atropine Sulfate 0.4mg/ml inj IVP PRN (12:00)
[2020-11-12] MEDS ORDERED: Meperidine 25mg/1ml Inj (FOR RIGORS ONLY) IV PRN (12:00)
[2020-11-12] MEDS ORDERED: Ketorolac 30mg Inj IV PRN ×2 (12:00)
[2020-11-12] MEDS ORDERED: DiphenhydrAMINE 50mg/ml Inj IVP PRN (12:00)
[2020-11-12] MEDS ORDERED: LR 1000ml 1,000 ML IVLG SCH (12:00)
[2020-11-12] MEDS ORDERED: Midazolam 2mg/2ml Inj IVP PRN (12:00)
[2020-11-12] MEDS ORDERED: fentaNYL 100 mcg/2 mL IV PRN (12:00)
[2020-11-12] MEDS ORDERED: Labetalol 5mg/ml 20ml vial IV PRN (12:00)
[2020-11-12] MEDS ORDERED: LORazepam Inj 2mg/ml 1ml IV PRN (12:00)
--- NOTE | 2020-11-12 12:04 | Anethesia Preoperative Eval ---
Anesthesia Pre-op PMH/ROS General Date of Evaluation: Nov 12, 2020 Time of Evaluation: 11:44 Anesthesiologist: Angelika ASA Score: ASA 4 Mallampati Score Class I : Soft palate, uvula, fauces, pillars visible Class II: Soft palate, uvula, fauces visible Class III: Soft palate, base of uvula visible Class IV: Only hard plate visible Mallampati Classification: Class III Surgeon: Shani Diagnosis: Abd Pain Surgical Procedure: EGD/Colonoscopy Anesthesia History: none Family History: no anesthesia problems Allergies: Coded Allergies: CODEINE (Verified Allergy, Unknown, 11/11/20) Medications: see eMAR Patient NPO?: Yes Past Medical History Cardiovascular: Reports: HTN Gastrointestinal/Genitourinary: Reports: other - BPH Neurologic/Psychiatric: Reports: CVA - Seizures Endocrine: Reports: DM Hematology/Immune: Reports: other - WEakness Anesthesia Pre-op Phys. Exam Physician Exam Last Vital Signs Date Time Temp Pulse Resp B/P (MAP) Pulse Ox O2 Delivery O2 Flow Rate FiO2 11/12/20 04:00 63 11/12/20 04:00 97.9 20 123/78 (93) 97 11/11/20 21:00 Room Air Constitutional: NAD Neurologic: CN 2-12 intact Cardiovascular: RRR Respiratory: CTA Gastrointestinal: S/NT/ND Airway Exam Mallampati Score: Class III MO: limited ROM: limited Teeth: missing, intact Anesthesia Pre-op A/P Labs Hematology Test 11/12/20 07:11 White Blood Count 8.3 K/UL (4.8-10.8) Red Blood Count 3.65 M/UL (4.70-6.10) L Hemoglobin 10.1 G/DL (14.2-18.0) L Hematocrit 32.1 % (42.0-52.0) L Mean Corpuscular Volume 88 FL (80-99) Mean Corpuscular Hemoglobin 27.7 PG (27.0-31.0) Mean Corpuscular Hemoglobin Concent 31.5 G/DL (32.0-36.0) L Red Cell Distribution Width 15.6 % (11.6-14.8) H Platelet Count 202 K/UL (150-450) Mean Platelet Volume 6.9 FL (6.5-10.1) Neutrophils (%) (Auto) 71.4 % (45.0-75.0) Lymphocytes (%) (Auto) 19.2 % (20.0-45.0) L Monocytes (%) (Auto) 8.0 % (1.0-10.0) Eosinophils (%) (Auto) 0.7 % (0.0-3.0) Basophils (%) (Auto) 0.6 % (0.0-2.0) Chemistry Test 11/12/20 07:11 Sodium Level 146 MMOL/L (136-145) H Potassium Level 4.4 MMOL/L (3.5-5.1) Chloride Level 113 MMOL/L (98-107) H Carbon Dioxide Level 26 MMOL/L (21-32) Anion Gap 7 mmol/L (5-15) Blood Urea Nitrogen 55 mg/dL (7-18) H Creatinine 2.4 MG/DL (0.55-1.30) H Estimat Glomerular Filtration Rate 31.8 mL/min (>60) Glucose Level 96 MG/DL (74-106) Hemoglobin A1c 6.5 % (4.3-6.0) H Uric Acid 6.4 MG/DL (2.6-7.2) Calcium Level 8.6 MG/DL (8.5-10.1) Phosphorus Level 2.7 MG/DL (2.5-4.9) Magnesium Level 1.9 MG/DL (1.8-2.4) Iron Level 29 ug/dL (50-175) L Total Iron Binding Capacity 149 ug/dL (250-450) L Percent Iron Saturation 19 % (15-50) Unsaturated Iron Binding 120 ug/dL (112-346) Ferritin 345 NG/ML (8-388) Total Bilirubin 0.6 MG/DL (0.2-1.0) Gamma Glutamyl Transpeptidase 11 U/L (5-85) Aspartate Amino Transf (AST/SGOT) 15 U/L (15-37) Alanine Aminotransferase (ALT/SGPT) 18 U/L (12-78) Alkaline Phosphatase 49 U/L (46-116) Troponin I 0.013 ng/mL (0.000-0.056) C-Reactive Protein, Quantitative 11.1 mg/dL (0.00-0.90) H Pro-B-Type Natriuretic Peptide 1336 pg/mL (0-125) H Total Protein 6.9 G/DL (6.4-8.2) Albumin 2.7 G/DL (3.4-5.0) L Globulin 4.2 g/dL Albumin/Globulin Ratio 0.6 (1.0-2.7) L Triglycerides Level 100 MG/DL (30-150) Cholesterol Level 142 MG/DL (< 200) LDL Cholesterol 75 mg/dL (<100) HDL Cholesterol 46 MG/DL (40-60) Cholesterol/HDL Ratio 3.1 (3.3-4.4) L Vitamin B12 Level 427 PG/ML (193-986) Vitamin D 25-Hydroxy Pending 25-Hydroxy Vitamin D2 Pending 25-Hydroxy Vitamin D3 Pending Folate 3.1 NG/ML (8.6-58.9) L Thyroid Stimulating Hormone (TSH) 1.237 uiU/mL (0.358-3.740) Risk Assessment & Plan Assessment: ASA 4 Plan: TIVA Status Change Before Surgery: No Gustavo Carney MD Nov 12, 2020 12:04
--- NOTE | 2020-11-12 12:05 | Immediate Post-Op Evaluation ---
Immediate Post-Op Evalulation Immediate Post-Op Evalulation Procedure: EGD/Colonoscopy Date of Evaluation: Nov 12, 2020 Time of Evaluation: 13:07 IV Fluids: 500 LR Blood Products: 0 Estimated Blood Loss: 1 Urinary Output: 0 Blood Pressure Systolic: 107 Blood Pressure Diastolic: 62 Pulse Rate: 58 Respiratory Rate: 16 O2 Sat by Pulse Oximetry: 100 Temperature (Fahrenheit): 97.5 Pain Score (1-10): 1 Nausea: No Vomiting: No Complications 0 Patient Status: awake, reacts, patent, none Hydration Status: adequate Gustavo Carney MD Nov 12, 2020 12:05
--- NOTE | 2020-11-12 12:05 | Pre-Procedure Note/Attestation ---
Pre-Procedure Note/Attestation Complete Prior to Procedure Planned Procedure: not applicable Procedure Narrative: esophagogastroduodenoscopy and colonoscopy Indications for Procedure Pre-Operative Diagnosis: gib Attestation I attest that I discussed the nature of the procedure; its benefits; risks and complications; and alternatives (and the risks and benefits of such alternatives), prior to the procedure, with the patient (or the patient's legal insurance service representative). I attest that, if there was a reasonable possibility of needing a blood transfusion, the patient (or the patient's legal insurance service representative) was given the [facility] standardized written summary, pursuant to the Jose Omar Blood Safety Act ([place] Health and Safety Code # 1645, as amended). I attest that I re-evaluated the patient just prior to the surgery and that there has been no change in the patient's H&P, except as documented below: Gael Mcleod MD Nov 12, 2020 12:05
--- NOTE | 2020-11-12 12:06 | 48 Hour Post Anesthesia Eval ---
Post Anesthesia Evaluation Procedure: EGD/Colonoscopy Date of Evaluation: Nov 12, 2020 Time of Evaluation: 15:12 Blood Pressure Systolic: 128 0: 92 Pulse Rate: 67 Respiratory Rate: 18 Temperature (Fahrenheit): 98 O2 Sat by Pulse Oximetry: 100 Airway: patent Nausea: No Vomiting: No Pain Intensity: 1 Hydration Status: adequate Cardiopulmonary Status: Stable Mental Status/LOC: patient returned to baseline Follow-up Care/Observations: 0 Post-Anesthesia Complications: 0 Follow-up care needed: N/A Gustavo Carney MD Nov 12, 2020 12:06
--- NOTE | 2020-11-12 12:32 | Endoscopy Procedure Note ---
Endoscopy Procedure Note General Indication for Procedure: gib Procedures Performed: EGD, colonoscopy Operative Findings/Diagnosis: diverticulosis Specimen: yes Pt Tolerated Procedure Well: Yes Estimated Blood Loss: none Anesthesia Anesthesiologist: raciel Anesthesia: MAC Inserted Devices Implant(s) used?: No Quality Quality of Bowel Preparation: Poor GI Core Measures 50 yrs or older w/o bx or poly: Not Applicable 10yrs. F/U recommended: Not Applicable Gael Mcleod MD Nov 12, 2020 12:32
--- NOTE | 2020-11-12 14:14 | Procedure Note ---
DATE OF PROCEDURE: 11/12/2020 SURGEON: Gael Mcleod MD. PROCEDURE: Upper endoscopy with biopsy and colonoscopy. ANESTHESIA: Per Dr. Merino. INSTRUMENT: Olympus adult flexible upper endoscope and colonoscope. INDICATION: Gastrointestinal bleeding. REASON FOR PROCEDURE: The procedure, risks, benefits, and possible consequences, including hemorrhage, aspiration, perforation and infection, and alternative treatments, were explained to the patient/legal guardian by Dr. Gael Mcleod and the patient/legal guardian understood and accepted these risks. PROCEDURE IN DETAIL: After informed consent was obtained and the patient was adequately sedated, Olympus upper endoscope was advanced from mouth into the second portion of the duodenum and retroflexion was performed in the stomach. The patient has evidence of atrophic gastritis. Random biopsy from antrum was obtained to rule out H. pylori infection. No evidence of any active upper GI bleeding at this time. At this time, the patient was turned over for colonoscopy. First, rectal exam was performed which was positive for internal hemorrhoids. Then, the scope was advanced from rectum into the mid transverse colon given poor prep and lot of stool and old blood in the colon we could not advance beyond this point. The patient has severe diverticulosis throughout the area that we could not examine. Again this colonoscopy was limited given poor prep. No active bright red blood was seen mostly old blood. SUMMARY OF FINDINGS: 1. Atrophic gastritis status post biopsy. 2. Incomplete colonoscopy examination given poor prep. 3. Old blood seen in the colon, possibly from diverticular bleed. 4. Significant diverticulosis of left colon. 5. Internal hemorrhoids. RECOMMENDATIONS: 1. Monitor hemoglobin and hematocrit, transfuse as needed. 2. Followup biopsy results. 3. Start the patient on clear liquid diet, if no bleeding we will advance. If not, we will have to re-scope with a better prep. I want to thank, Dr. Tam, for this kind referral. Gael Mcleod M.D. DR: Mary JOB#: [id number] CC: Moses Tam M.D.
--- NOTE | 2020-11-12 15:48 | Cardiology Report ---
APPROVED REPORT EKG Measurement Heart [id number] <Conclusion> Sinus bradycardia with 1st degree AV block Nonspecific ST and T wave abnormality Abnormal ECG
--- NOTE | 2020-11-12 16:53 | NUR ---
Speech Pathology Note (Bedside Dysphagia Evaluation) Brief Note: Mr. Miles is an 79 year old male BIBA from [facility] on 11/11/2020 for rectal bleeding and coffee-ground emesis. On arrival he was hypotensive (87/61). H/H was at his baseline 11.9/38.1. His creatine is slightly elevated from 2.39 to 2.6. He admitted [facility] for further work up for GI bleed. He underwent the EGD and colonoscopy today. The findings were atrophic gastritis s.p biopsy of antrum, inconclusive colonoscopy due to suboptimal preparation for visualization. 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 He is currently clear liquid diet per GI. PMH: BPH, CKD, Cardiomegaly, and seizure. Findings: Mr. 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 He uses great facial expression and gestures to express himself. He follows simple commands with visual cues. His voice is intact. Given him thin liquid via straw, he was able to self drink with left hand and swallowed without clinical concerns. Oral mucosa is clear. Interpretation: 1. Functional oropharyngeal swallow 2. 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 Mechanical soft diet and thin liquid if cleared by GI 2. Supportive communication -May benefit from Speech and Language Evaluation at his detention facility Gita Hanna
[2020-11-12] MEDS ORDERED: VITAMIN D325 MC1 PO (17:51)
[2020-11-12] MEDS ORDERED: ACETAMINOPHEN325 M1 ORAL (17:51)
[2020-11-12] MEDS ORDERED: PERIGUARD OINT100 GM TP (17:51)
[2020-11-12] MEDS ORDERED: ASPIRIN325 MG ORAL (17:51)
[2020-11-12] MEDS ORDERED: ORAL ANALGESIC9 GM MM (17:51)
--- NOTE | 2020-11-12 19:39 | General Progress Note ---
Subjective Date patient seen: Nov 12, 2020 Time patient seen: 10:00 ROS Limited/Unobtainable: Yes Allergies: Coded Allergies: CODEINE (Verified Allergy, Unknown, 11/11/20) Objective Last 24 Hour Vital Signs Date Time Temp Pulse Resp B/P (MAP) Pulse Ox O2 Delivery O2 Flow Rate FiO2 11/12/20 16:00 58 11/12/20 16:00 96.3 59 20 118/70 (86) 98 11/12/20 13:40 97.9 58 15 109/58 98 Room Air 11/12/20 13:30 54 14 110/59 100 Room Air 11/12/20 13:17 65 18 108/57 97 Simple Mask 6 11/12/20 13:07 59 15 111/69 100 Simple Mask 6 11/12/20 12:57 60 16 113/57 100 Simple Mask 6 11/12/20 12:52 61 16 111/54 100 Simple Mask 6 11/12/20 12:52 67 18 100 11/12/20 12:51 58 16 100 11/12/20 12:47 97.5 61 15 107/62 100 Simple Mask 6 11/12/20 12:00 75 11/12/20 12:00 97.2 68 18 125/76 (92) 97 11/12/20 09:00 Room Air 11/12/20 08:00 97.3 64 20 116/64 (81) 98 11/12/20 08:00 64 11/12/20 04:00 63 11/12/20 04:00 97.9 74 20 123/78 (93) 97 11/12/20 00:00 66 11/12/20 00:00 95.6 74 20 125/73 (90) 97 11/11/20 21:00 Room Air 11/11/20 20:00 96.0 70 20 128/74 (92) 97 11/11/20 20:00 60 11/11/20 20:00 Room Air Intake and Output 11/11/20 11/12/20 19:00 07:00 Output Total 1000 ml Balance -1000 ml Output Urine Total 1000 ml # Bowel Movements 1 Current Medications Medications (Trade) Dose Ordered Sig/Lonnie Route PRN Reason Start Time Stop Time Status Last Admin Dose Admin Barium Sulfate (Varibar Honey) 250 ml NOW PRN MC RAD 11/11/20 14:00 11/14/20 13:54 Barium Sulfate (Varibar [place]) 240 ml NOW PRN MC RAD 11/11/20 14:00 11/14/20 13:54 Barium Sulfate (Varibar Pudding) 230 ml NOW PRN MC RAD 11/11/20 14:00 11/14/20 13:54 Barium Sulfate (Varibar Thin Liquid powder) 148 gm NOW PRN MC RAD 11/11/20 14:00 11/14/20 13:54 Dextrose/ Electrolytes 1,000 ml @ 75 mls/hr [id number] IV 11/11/20 16:30 12/11/20 16:29 11/12/20 14:01 Docusate Sodium (Colace) 100 mg THREE TIMES A DAY ORAL 11/11/20 18:00 12/11/20 17:59 11/12/20 18:17 Levetiracetam 100 ml @ 400 mls/hr Q12HR IVPB 11/11/20 21:00 12/11/20 20:59 11/12/20 09:04 Pantoprazole (Protonix) 40 mg EVERY 12 HOURS IVP 11/11/20 21:00 12/11/20 20:59 11/12/20 09:03 Laboratory Tests 11/12/20 07:11: White Blood Count 8.3, Red Blood Count 3.65L, Hemoglobin 10.1L, Hematocrit 32.1L , Mean Corpuscular Volume 88, Mean Corpuscular Hemoglobin 27.7, Mean Corpuscular Hemoglobin Concent 31.5L, Red Cell Distribution Width 15.6H, Platelet Count 202, Mean Platelet Volume 6.9, Neutrophils (%) (Auto) 71.4, Lymphocytes (%) (Auto) 19.2L, Monocytes (%) (Auto) 8.0, Eosinophils (%) (Auto) 0.7, Basophils (%) (Auto) 0.6, Sodium Level 146H, Potassium Level 4.4, Chloride Level 113H, Carbon Dioxide Level 26, Anion Gap 7, Blood Urea Nitrogen 55H, Creatinine 2.4H, Estimat Glomerular Filtration Rate 31.8, Glucose Level 96, Hemoglobin A1c 6.5H, Uric Acid 6.4, Calcium Level 8.6, Phosphorus Level 2.7, Magnesium Level 1.9, Iron Level 29L, Total Iron Binding Capacity 149L, Percent Iron Saturation 19, Unsaturated Iron Binding 120, Ferritin 345, Total Bilirubin 0.6, Gamma Glutamyl Transpeptidase 11, Aspartate Amino Transf (AST/SGOT) 15, Alanine Aminotransferase (ALT/SGPT) 18, Alkaline Phosphatase 49, Troponin I 0.013, C- Reactive Protein, Quantitative 11.1H, Pro-B-Type Natriuretic Peptide 1336H, Total Protein 6.9, Albumin 2.7L, Globulin 4.2, Albumin/Globulin Ratio 0.6L, Triglycerides Level 100, Cholesterol Level 142, LDL Cholesterol 75, HDL Cholesterol 46, Cholesterol/HDL Ratio 3.1L, Vitamin B12 Level 427, Vitamin D 25- Hydroxy [Pending], 25-Hydroxy Vitamin D2 [Pending], 25-Hydroxy Vitamin D3 [Pending], Folate 3.1L, Thyroid Stimulating Hormone (TSH) 1.237 Height (Feet): 6 Height (Inches): 2.00 Weight (Pounds): 180 General Appearance: no apparent distress Cardiovascular: normal rate Respiratory/Chest: decreased breath sounds Abdomen: soft Assessment/Plan Problem List: (1) Renal failure (ARF), acute on chronic ICD Codes: N17.9 - Acute kidney failure, unspecified; N18.9 - Chronic kidney disease, unspecified SNOMED: 273244899 (2) GI bleed ICD Codes: K92.2 - Gastrointestinal hemorrhage, unspecified SNOMED: 11883650 Qualifiers: Qualified Codes: K92.2 - Gastrointestinal hemorrhage, unspecified (3) Anemia ICD Codes: D64.9 - Anemia, unspecified SNOMED: 382844429 (4) BPH (benign prostatic hyperplasia) ICD Codes: N40.0 - Benign prostatic hyperplasia without lower urinary tract symptoms SNOMED: 700952823 (5) Seizure disorder ICD Codes: G40.909 - Epilepsy, unspecified, not intractable, without status epilepticus SNOMED: 331971667 (6) DMII (diabetes mellitus, type 2) ICD Codes: E11.9 - Type 2 diabetes mellitus without complications SNOMED: 55929526 (7) Hypotension Assessment & Plan: On presentation ICD Codes: I95.9 - Hypotension, unspecified SNOMED: 88394943 Status Narrative GI bleed upper and lower BPH CKD Diabetes mellitus Seizure disorder Cardiomegaly Assessment/Plan: November 12: Patient had upper and lower endoscopy and according to patient has severe diverticulosis and the source of the bleed may have been diverticular. Post endoscopy will change n.p.o. to clear liquids. Monitor H&H. GI ritchie, monitor H&H per consultants kidney TEX noted Per orders discussed with Moses Pedroza MD Nov 12, 2020 19:39
--- NOTE | 2020-11-12 19:51 | NUR ---
NURSE HAND-OFF REPORT: Important Events on Shift:[]pt in bed able to tolerate clear liquids. Patient Status: []full code Diet: []clear liquids Pending Orders: [] Pending Results/Labs:[] Pending MD notification:[] Latest Vital Signs: Temperature 96.3 , Pulse 59 , B/P 118 /70 , Respiratory Rate 20 , O2 SAT 98 , Room Air, O2 Flow Rate 6 . Vital Sign Comment: [] EKG Rhythm: Sinus Rhythm Rhythm change?: N MD Notified?: - MD Response: Latest Hernandez Fall Score: 50 Fall Risk: High Risk Safety Measures: Call light Within Reach, Bed Alarm Zone 1, Side Rails Side Rails x3, Bed position Low and Locked. Fall Precautions: y Yellow Socks y Yellow Gown y Door Sign y Patient Fall Education Report given to [].Felipa/ Roselyn
--- NOTE | 2020-11-12 19:52 | NUR ---
NURSE NOTES: Report received from MARIA L Reyes. Patient is awake on bed in stable condition. Alert and oriented x 0, mumbled words. satellite project site monitor is in place, shows sinus bradycardia. Patient is on room air, saturating 97-98% and no acute distress noted at this time. On clear liquid diet. With bullock catheter in place, drained via gravity, noted light augustine color urine output. On aspiration precaution maintained and observed. IV site is on left hand g-20 running, D5 1/2 NS @ 75 cc/hour that is patent and intact. Safety measures are in place, bed in lowest and locked position, side rails up x 2, call light button and bedside table within reach, instructed to call for any assistance needed.
--- NOTE | 2020-11-12 20:10 | NUR ---
NURSE NOTES: Patient sodium level is [address] Tam is aware. Shifted IVF to D5W @ 75cc/hour
--- NOTE | 2020-11-12 22:25 | NUR ---
NURSE NOTES: Patient complaints of pain on his right hand, no visible hematoma nor swelling noted. Will inform MD.
[2020-11-13] VITALS: BP 141/84
[2020-11-13 04:00] VITALS: BP 142/81
[2020-11-13 06:49] LABS: BASOPHILS % (AUTO) 1.6 % (0.0-2.0); EOSINOPHILS % (AUTO) 2.6 % (0.0-3.0); HEMATOCRIT 33.2 % (42.0-52.0); HEMOGLOBIN 10.6 G/DL (14.2-18.0); LYMPHOCYTES % (AUTO) 32.9 % (20.0-45.0); MEAN CORPUSCULAR VOLUME 88 FL (80-99); MONOCYTES % (AUTO) 8.9 % (1.0-10.0); PLATELET COUNT 196 K/UL (150-450); RED BLOOD COUNT 3.76 M/UL (4.70-6.10); RED CELL DISTRIBUTION WIDTH 16.1 % (11.6-14.8); WHITE BLOOD COUNT 5.1 K/UL (4.8-10.8)
[2020-11-13 07:02] LABS: ALBUMIN 2.7 G/DL (3.4-5.0); ALBUMIN/GLOBULIN RATIO 0.6 (1.0-2.7); BILIRUBIN,TOTAL 0.8 MG/DL (0.2-1.0); CALCIUM 8.9 MG/DL (8.5-10.1); CREATININE 2.3 MG/DL (0.55-1.30); POTASSIUM 4.3 MMOL/L (3.5-5.1)
--- NOTE | 2020-11-13 07:31 | NUR ---
NURSE HAND-OFF REPORT: Important Events on Shift: Patient has been resting well the whole shift, no hypotension nor desaturation noted. Shifted his IV fluid from D5 1/2 NS to D5W because of his Sodium level of 146. Patient complaints of pain on his right hand. Endorsed to morning RN Patient Status: Patient is asleep in stable condition. Plan of care endorsed. Diet: Clear liquid diet Pending Orders: none Pending Results/Labs:AM lab result Pending MD notification:none Latest Vital Signs: Temperature 97.6 , Pulse 65 , B/P 142 /81 , Respiratory Rate 20 , O2 SAT 97 , Room Air, O2 Flow Rate 6 . Vital Sign Comment: stable EKG Rhythm: Sinus Rhythm Rhythm change?: N MD Notified?: - MD Response: Latest Hernandez Fall Score: 70 Fall Risk: High Risk Safety Measures: Call light Within Reach, Bed Alarm Zone 1, Side Rails Side Rails x3, Bed position Low and Locked. Fall Precautions: Yellow Socks Yellow Gown Door Sign Patient Fall Education Report given to MARIA L Cadena.
[2020-11-13 07:57] LABS: PHOSPHORUS 2.4 MG/DL (2.5-4.9)
[2020-11-13 08:00] VITALS: BP 134/79
[2020-11-13] MEDS: Pantoprazole Inj IVP SCH (08:25)
[2020-11-13] MEDS: levETIRAcetam 500mg/NS100ml 100 ML IVPB SCH (08:26)
[2020-11-13] MEDS: Docusate 100mg cap ORAL SCH ×3 (08:37→17:52)
--- NOTE | 2020-11-13 09:31 | General Progress Note ---
Subjective ROS Limited/Unobtainable: Yes Allergies: Coded Allergies: CODEINE (Verified Allergy, Unknown, 11/11/20) Objective Last 24 Hour Vital Signs Date Time Temp Pulse Resp B/P (MAP) Pulse Ox O2 Delivery O2 Flow Rate FiO2 11/13/20 08:00 98.6 71 20 134/79 (97) 96 11/13/20 04:00 68 11/13/20 04:00 97.6 65 20 142/81 (101) 97 11/13/20 00:00 97.4 70 20 141/84 (103) 97 11/13/20 00:00 74 11/12/20 21:00 Room Air 11/12/20 20:00 96.0 60 20 120/76 (91) 97 11/12/20 20:00 57 11/12/20 16:00 58 11/12/20 16:00 96.3 59 20 118/70 (86) 98 11/12/20 13:40 97.9 58 15 109/58 98 Room Air 11/12/20 13:30 54 14 110/59 100 Room Air 11/12/20 13:17 65 18 108/57 97 Simple Mask 6 11/12/20 13:07 59 15 111/69 100 Simple Mask 6 11/12/20 12:57 60 16 113/57 100 Simple Mask 6 11/12/20 12:52 61 16 111/54 100 Simple Mask 6 11/12/20 12:52 67 18 100 11/12/20 12:51 58 16 100 11/12/20 12:47 97.5 61 15 107/62 100 Simple Mask 6 11/12/20 12:00 75 11/12/20 12:00 97.2 68 18 125/76 (92) 97 Intake and Output 11/12/20 11/13/20 19:00 07:00 Intake Total 740 ml Output Total 600 ml 2200 ml Balance 140 ml -2200 ml Intake Oral 240 ml IV Total 500 ml Output Urine Total 600 ml 2200 ml # Bowel Movements 1 Laboratory Tests 11/13/20 06:05: White Blood Count 5.1, Red Blood Count 3.76L, Hemoglobin 10.6L, Hematocrit 33.2L , Mean Corpuscular Volume 88, Mean Corpuscular Hemoglobin 28.2, Mean Corpuscular Hemoglobin Concent 32.0, Red Cell Distribution Width 16.1H, Platelet Count 196, Mean Platelet Volume 7.6, Neutrophils (%) (Auto) 54.0, Lymphocytes (%) (Auto) 32.9, Monocytes (%) (Auto) 8.9, Eosinophils (%) (Auto) 2.6, Basophils (%) (Auto) 1.6, Erythrocyte Sedimentation Rate 78H, Prothrombin Time 11.3, Prothromb Time International Ratio 1.0, Activated Partial Thromboplast Time 29, Sodium Level 144, Potassium Level 4.3, Chloride Level 112H, Carbon Dioxide Level 26, Anion Gap 6, Blood Urea Nitrogen 40H, Creatinine 2.3H, Estimat Glomerular Filtration Rate 33.3, Glucose Level 91, Uric Acid 6.7, Calcium Level 8.9, Phosphorus Level 2.4L, Magnesium Level 1.8, Total Bilirubin 0.8, Aspartate Amino Transf (AST/SGOT) 17, Alanine Aminotransferase (ALT/SGPT) 17, Alkaline Phosphatase 51, C-Reactive Protein, Quantitative 12.8H, Pro-B-Type Natriuretic Peptide 1712H, Total Protein 7.1, Albumin 2.7L, Globulin 4.4, Albumin/Globulin Ratio 0.6L Height (Feet): 6 Height (Inches): 2.00 Weight (Pounds): 180 General Appearance: no apparent distress EENT: PERRL/EOMI Neck: supple Cardiovascular: normal rate Respiratory/Chest: decreased breath sounds Abdomen: normal bowel sounds, non tender, soft Extremities: non-tender Assessment/Plan Problem List: (1) GI bleed ICD Codes: K92.2 - Gastrointestinal hemorrhage, unspecified SNOMED: 17812990 Qualifiers: Qualified Codes: K92.2 - Gastrointestinal hemorrhage, unspecified (2) Renal failure ICD Codes: N19 - Unspecified kidney failure SNOMED: 67622672 Qualifiers: Qualified Codes: N19 - Unspecified kidney failure Assessment/Plan: s/p EGD and colonoscopy: SUMMARY OF FINDINGS: 1. Atrophic gastritis status post biopsy. 2. Incomplete colonoscopy examination given poor prep. 3. Old blood seen in the colon, possibly from diverticular bleed. 4. Significant diverticulosis of left colon. 5. Internal hemorrhoids. RECOMMENDATIONS: 1. Monitor hemoglobin and hematocrit, transfuse as needed. 2. Followup biopsy results. 3. advance diet to renal Gael Mcleod MD Nov 13, 2020 09:31
--- NOTE | 2020-11-13 09:52 | Pulmonology Progress Note ---
Subjective ROS Limited/Unobtainable: Yes Interval Events: none major reported per nursing Constitutional: Reports: no symptoms HEENT: Repors: no symptoms Respiratory: Reports: no symptoms Cardiovascular: Reports: no symptoms Gastrointestinal/Abdominal: Reports: no symptoms Allergies: Coded Allergies: CODEINE (Verified Allergy, Unknown, 11/11/20) Objective Last 24 Hour Vital Signs Date Time Temp Pulse Resp B/P (MAP) Pulse Ox O2 Delivery O2 Flow Rate FiO2 11/13/20 08:00 98.6 71 20 134/79 (97) 96 11/13/20 04:00 68 11/13/20 04:00 97.6 65 20 142/81 (101) 97 11/13/20 00:00 97.4 70 20 141/84 (103) 97 11/13/20 00:00 74 11/12/20 21:00 Room Air 11/12/20 20:00 96.0 60 20 120/76 (91) 97 11/12/20 20:00 57 11/12/20 16:00 58 11/12/20 16:00 96.3 59 20 118/70 (86) 98 11/12/20 13:40 97.9 58 15 109/58 98 Room Air 11/12/20 13:30 54 14 110/59 100 Room Air 11/12/20 13:17 65 18 108/57 97 Simple Mask 6 11/12/20 13:07 59 15 111/69 100 Simple Mask 6 11/12/20 12:57 60 16 113/57 100 Simple Mask 6 11/12/20 12:52 61 16 111/54 100 Simple Mask 6 11/12/20 12:52 67 18 100 11/12/20 12:51 58 16 100 11/12/20 12:47 97.5 61 15 107/62 100 Simple Mask 6 11/12/20 12:00 75 11/12/20 12:00 97.2 68 18 125/76 (92) 97 Intake and Output 11/12/20 11/13/20 19:00 07:00 Intake Total 740 ml Output Total 600 ml 2200 ml Balance 140 ml -2200 ml Intake Oral 240 ml IV Total 500 ml Output Urine Total 600 ml 2200 ml # Bowel Movements 1 General Appearance: no acute distress HEENT: atraumatic Respiratory: lungs clear Cardiovascular: normal rate, regular rhythm Abdomen: soft, non tender Microbiology Date/Time Source Procedure Growth Status 11/12/20 11:15 Nasopharynx SARS-CoV-2 Antigen (Rapid)(STEPHANIE) - Final Complete Laboratory Tests 11/13/20 06:05: White Blood Count 5.1, Red Blood Count 3.76L, Hemoglobin 10.6L, Hematocrit 33.2L , Mean Corpuscular Volume 88, Mean Corpuscular Hemoglobin 28.2, Mean Corpuscular Hemoglobin Concent 32.0, Red Cell Distribution Width 16.1H, Platelet Count 196, Mean Platelet Volume 7.6, Neutrophils (%) (Auto) 54.0, Lymphocytes (%) (Auto) 32.9, Monocytes (%) (Auto) 8.9, Eosinophils (%) (Auto) 2.6, Basophils (%) (Auto) 1.6, Erythrocyte Sedimentation Rate 78H, Prothrombin Time 11.3, Prothromb Time International Ratio 1.0, Activated Partial Thromboplast Time 29, Sodium Level 144, Potassium Level 4.3, Chloride Level 112H, Carbon Dioxide Level 26, Anion Gap 6, Blood Urea Nitrogen 40H, Creatinine 2.3H, Estimat Glomerular Filtration Rate 33.3, Glucose Level 91, Uric Acid 6.7, Calcium Level 8.9, Phosphorus Level 2.4L, Magnesium Level 1.8, Total Bilirubin 0.8, Aspartate Amino Transf (AST/SGOT) 17, Alanine Aminotransferase (ALT/SGPT) 17, Alkaline Phosphatase 51, C-Reactive Protein, Quantitative 12.8H, Pro-B-Type Natriuretic Peptide 1712H, Total Protein 7.1, Albumin 2.7L, Globulin 4.4, Albumin/Globulin Ratio 0.6L Current Medications Medications (Trade) Dose Ordered Sig/Lonnie Route PRN Reason Start Time Stop Time Status Last Admin Dose Admin Barium Sulfate (Varibar Honey) 250 ml NOW PRN MC RAD 11/11/20 14:00 11/14/20 13:54 Barium Sulfate (Varibar [place]) 240 ml NOW PRN MC RAD 11/11/20 14:00 11/14/20 13:54 Barium Sulfate (Varibar Pudding) 230 ml NOW PRN MC RAD 11/11/20 14:00 11/14/20 13:54 Barium Sulfate (Varibar Thin Liquid powder) 148 gm NOW PRN MC RAD 11/11/20 14:00 11/14/20 13:54 Dextrose 1,000 ml @ 75 mls/hr [id number] IV 11/12/20 19:45 12/12/20 19:44 11/12/20 20:46 Docusate Sodium (Colace) 100 mg THREE TIMES A DAY ORAL 11/11/20 18:00 12/11/20 17:59 11/13/20 08:37 Levetiracetam 100 ml @ 400 mls/hr Q12HR IVPB 11/11/20 21:00 12/11/20 20:59 11/13/20 08:26 Pantoprazole (Protonix) 40 mg EVERY 12 HOURS IVP 11/11/20 21:00 12/11/20 20:59 11/13/20 08:25 Assessment/Plan Assessment/Plan 1. History of seizure disorder and risk for aspiration -Continue Keppra -Monitor for fever - f/u chest x-ray if indicated 2.Diabetes mellitus with hyperglycemia -BG control 3. Renal failure -Per primary 4. GI bleeding - s/p Zofran, Protonix - s/p EGD/Col (11/12): atrophic gastritis, diverticulosis, internal hemorrhoids; management per GI 5. CXR - Lucency under the L hemidiaphragm, suspect gastric distension - monitor The care for this patient was discussed with my supervising physician. Time spent for this case was approximately 31 minutes. Brenden Patel Nov 13, 2020 09:52
[2020-11-13 12:00] VITALS: BP 123/74
--- NOTE | 2020-11-13 12:11 | CDS Physician Query ---
Clarification is required for compliance, coding accuracy, and to reflect severity of illness for this patient Dear Dr. Moses Tam Date: 11/13/2020 Ticket Dispenser Changer/CDS Name: Alexandria Garcia Clinical Documentation states: HNP - 79-year-old male presents for evaluation. Brought in from intermediate facility with rectal bleeding and coffee-ground emesis. Bright red blood per rectum per nursing Labs 11/12: Hb 10.1, Hct 32.1 Please respond to the following question: Is there a diagnosis specific to these symptoms or values? If so please state below. PHYSICIAN RESPONSE: [] Drop in Hemoglobin [] Drop in Hematocrit [] Acute blood loss Anemia [] Other Anemia [] Other [] Clinically Undertemined Present on Admission: [] Yes [] No [] Clinically Undetermined Physician signature Date Please also document in your Progress Notes and/or Discharge Summary and indicate if the condition was present on admission. JOSED
--- NOTE | 2020-11-13 13:26 | Surgery Progress Note ---
Surgery Progress Note Subjective Additional Comments no acute events scope results noted no n/v labs stab e Objective Last 24 Hour Vital Signs Date Time Temp Pulse Resp B/P (MAP) Pulse Ox O2 Delivery O2 Flow Rate FiO2 11/13/20 08:00 98.6 71 20 134/79 (97) 96 11/13/20 04:00 68 11/13/20 04:00 97.6 65 20 142/81 (101) 97 11/13/20 00:00 97.4 70 20 141/84 (103) 97 11/13/20 00:00 74 11/12/20 21:00 Room Air 11/12/20 20:00 96.0 60 20 120/76 (91) 97 11/12/20 20:00 57 11/12/20 16:00 58 11/12/20 16:00 96.3 59 20 118/70 (86) 98 11/12/20 13:40 97.9 58 15 109/58 98 Room Air 11/12/20 13:30 54 14 110/59 100 Room Air I&O Intake and Output 11/12/20 11/13/20 19:00 07:00 Intake Total 740 ml Output Total 600 ml 2200 ml Balance 140 ml -2200 ml Intake Oral 240 ml IV Total 500 ml Output Urine Total 600 ml 2200 ml # Bowel Movements 1 Dressing: saturated Cardiovascular: RSR Respiratory: decreased breath sounds Abdomen: soft, non-tender, present bowel sounds, non-distended Extremities: no edema, no tenderness, no cyanosis Laboratory Tests Test 11/13/20 06:05 White Blood Count 5.1 K/UL (4.8-10.8) Red Blood Count 3.76 M/UL (4.70-6.10) L Hemoglobin 10.6 G/DL (14.2-18.0) L Hematocrit 33.2 % (42.0-52.0) L Mean Corpuscular Volume 88 FL (80-99) Mean Corpuscular Hemoglobin 28.2 PG (27.0-31.0) Mean Corpuscular Hemoglobin Concent 32.0 G/DL (32.0-36.0) Red Cell Distribution Width 16.1 % (11.6-14.8) H Platelet Count 196 K/UL (150-450) Mean Platelet Volume 7.6 FL (6.5-10.1) Neutrophils (%) (Auto) 54.0 % (45.0-75.0) Lymphocytes (%) (Auto) 32.9 % (20.0-45.0) Monocytes (%) (Auto) 8.9 % (1.0-10.0) Eosinophils (%) (Auto) 2.6 % (0.0-3.0) Basophils (%) (Auto) 1.6 % (0.0-2.0) Erythrocyte Sedimentation Rate 78 MM/HR (0-20) H Prothrombin Time 11.3 SEC (9.30-11.50) Prothromb Time International Ratio 1.0 (0.9-1.1) Activated Partial Thromboplast Time 29 SEC (23-33) Sodium Level 144 MMOL/L (136-145) Potassium Level 4.3 MMOL/L (3.5-5.1) Chloride Level 112 MMOL/L (98-107) H Carbon Dioxide Level 26 MMOL/L (21-32) Anion Gap 6 mmol/L (5-15) Blood Urea Nitrogen 40 mg/dL (7-18) H Creatinine 2.3 MG/DL (0.55-1.30) H Estimat Glomerular Filtration Rate 33.3 mL/min (>60) Glucose Level 91 MG/DL (74-106) Uric Acid 6.7 MG/DL (2.6-7.2) Calcium Level 8.9 MG/DL (8.5-10.1) Phosphorus Level 2.4 MG/DL (2.5-4.9) L Magnesium Level 1.8 MG/DL (1.8-2.4) Total Bilirubin 0.8 MG/DL (0.2-1.0) Aspartate Amino Transf (AST/SGOT) 17 U/L (15-37) Alanine Aminotransferase (ALT/SGPT) 17 U/L (12-78) Alkaline Phosphatase 51 U/L (46-116) C-Reactive Protein, Quantitative 12.8 mg/dL (0.00-0.90) H Pro-B-Type Natriuretic Peptide 1712 pg/mL (0-125) H Total Protein 7.1 G/DL (6.4-8.2) Albumin 2.7 G/DL (3.4-5.0) L Globulin 4.4 g/dL Albumin/Globulin Ratio 0.6 (1.0-2.7) L Plan Problems: (1) Renal failure (2) GI bleed Assessment & Plan: 79-year-old male with possible GI bleed. Coffee-ground emesis. Hemoglobin noted. Exam fairly benign. Currently no nausea vomiting fever chills. GI eval for possible upper and lower scope. Trend labs. PRBC as needed. Imaging noted. No acute surgical intervention planned at this time. We will follow the recommendations and available in the event bleeding ongoing and requires intervention. Kei Love Nov 13, 2020 13:26
--- NOTE | 2020-11-13 14:06 | General Progress Note ---
Subjective Date patient seen: Nov 13, 2020 Time patient seen: 09:00 ROS Limited/Unobtainable: No Constitutional: Reports: malaise Allergies: Coded Allergies: CODEINE (Verified Allergy, Unknown, 11/11/20) Objective Last 24 Hour Vital Signs Date Time Temp Pulse Resp B/P (MAP) Pulse Ox O2 Delivery O2 Flow Rate FiO2 11/13/20 08:00 98.6 71 20 134/79 (97) 96 11/13/20 04:00 68 11/13/20 04:00 97.6 65 20 142/81 (101) 97 11/13/20 00:00 97.4 70 20 141/84 (103) 97 11/13/20 00:00 74 11/12/20 21:00 Room Air 11/12/20 20:00 96.0 60 20 120/76 (91) 97 11/12/20 20:00 57 11/12/20 16:00 58 11/12/20 16:00 96.3 59 20 118/70 (86) 98 Current Medications Medications (Trade) Dose Ordered Sig/Lonnie Route PRN Reason Start Time Stop Time Status Last Admin Dose Admin Acetaminophen (Tylenol) 650 mg Q4H PRN ORAL Mild Pain (Pain Scale 1-3) 11/13/20 14:15 12/13/20 14:14 UNV Barium Sulfate (Varibar Honey) 250 ml NOW PRN MC RAD 11/11/20 14:00 11/14/20 13:54 Barium Sulfate (Varibar [place]) 240 ml NOW PRN MC RAD 11/11/20 14:00 11/14/20 13:54 Barium Sulfate (Varibar Pud[place]) 230 ml NOW PRN MC RAD 11/11/20 14:00 11/14/20 13:54 Barium Sulfate (Varibar Thin Liquid powder) 148 gm NOW PRN MC RAD 11/11/20 14:00 11/14/20 13:54 Dextrose 1,000 ml @ 75 mls/hr [id number] IV 11/12/20 19:45 12/12/20 19:44 11/13/20 11:18 Docusate Sodium (Colace) 100 mg THREE TIMES A DAY ORAL 11/11/20 18:00 12/11/20 17:59 11/13/20 13:20 Lansoprazole (Prevacid) 30 mg BID ORAL 11/13/20 18:00 12/13/20 17:59 UNV Levetiracetam (Keppra) 750 mg Q12HR ORAL 11/13/20 21:00 12/28/20 20:59 UNV Intake and Output 11/12/20 11/13/20 19:00 07:00 Intake Total 740 ml Output Total 600 ml 2200 ml Balance 140 ml -2200 ml Intake Oral 240 ml IV Total 500 ml Output Urine Total 600 ml 2200 ml # Bowel Movements 1 Laboratory Tests 11/13/20 06:05: White Blood Count 5.1, Red Blood Count 3.76L, Hemoglobin 10.6L, Hematocrit 33.2L , Mean Corpuscular Volume 88, Mean Corpuscular Hemoglobin 28.2, Mean Corpuscular Hemoglobin Concent 32.0, Red Cell Distribution Width 16.1H, Platelet Count 196, Mean Platelet Volume 7.6, Neutrophils (%) (Auto) 54.0, Lymphocytes (%) (Auto) 32.9, Monocytes (%) (Auto) 8.9, Eosinophils (%) (Auto) 2.6, Basophils (%) (Auto) 1.6, Erythrocyte Sedimentation Rate 78H, Prothrombin Time 11.3, Prothromb Time International Ratio 1.0, Activated Partial Thromboplast Time 29, Sodium Level 144, Potassium Level 4.3, Chloride Level 112H, Carbon Dioxide Level 26, Anion Gap 6, Blood Urea Nitrogen 40H, Creatinine 2.3H, Estimat Glomerular Filtration Rate 33.3, Glucose Level 91, Uric Acid 6.7, Calcium Level 8.9, Phosphorus Level 2.4L, Magnesium Level 1.8, Total Bilirubin 0.8, Aspartate Amino Transf (AST/SGOT) 17, Alanine Aminotransferase (ALT/SGPT) 17, Alkaline Phosphatase 51, C-Reactive Protein, Quantitative 12.8H, Pro-B-Type Natriuretic Peptide 1712H, Total Protein 7.1, Albumin 2.7L, Globulin 4.4, Albumin/Globulin Ratio 0.6L Height (Feet): 6 Height (Inches): 2.00 Weight (Pounds): 180 General Appearance: mild distress, other - Questionable right hand pain Cardiovascular: bradycardia Respiratory/Chest: decreased breath sounds Abdomen: distended Neurologic: other - Right rudy- Assessment/Plan Problem List: (1) Renal failure (ARF), acute on chronic ICD Codes: N17.9 - Acute kidney failure, unspecified; N18.9 - Chronic kidney disease, unspecified SNOMED: 548504688 (2) GI bleed ICD Codes: K92.2 - Gastrointestinal hemorrhage, unspecified SNOMED: 62347351 Qualifiers: Qualified Codes: K92.2 - Gastrointestinal hemorrhage, unspecified (3) Anemia ICD Codes: D64.9 - Anemia, unspecified SNOMED: 160890522 (4) BPH (benign prostatic hyperplasia) ICD Codes: N40.0 - Benign prostatic hyperplasia without lower urinary tract symptoms SNOMED: 342337872 (5) Hypotension Assessment & Plan: On presentation ICD Codes: I95.9 - Hypotension, unspecified SNOMED: 54422050 (6) DMII (diabetes mellitus, type 2) ICD Codes: E11.9 - Type 2 diabetes mellitus without complications SNOMED: 52875883 (7) Seizure disorder ICD Codes: G40.909 - Epilepsy, unspecified, not intractable, without status epilepticus SNOMED: 136558844 [place] I: GI bleed upper and lower BPH CKD Diabetes mellitus Seizure disorder Cardiomegaly Assessment/Plan: November 13: Hemoglobin stable. Upper and lower endoscopy results noted. Seems GI bleed was as a result of the diverticular source. Medication list reviewed. Diet advanced. Cardiology advised for abnormal heart rate requested. Aim to DC tomorrow if hemoglobin hematocrit stable. Continue per orders. Tylenol for pain Previously GI ritchie, monitor H&H per consultants kidney TEX noted Per orders discussed with Moses Pedroza MD Nov 13, 2020 14:06
--- NOTE | 2020-11-13 14:12 | Cardiac Electrophysiology PN ---
Subjective Subjective [id number] Objective Last 24 Hour Vital Signs Date Time Temp Pulse Resp B/P (MAP) Pulse Ox O2 Delivery O2 Flow Rate FiO2 11/13/20 08:00 98.6 71 20 134/79 (97) 96 11/13/20 04:00 68 11/13/20 04:00 97.6 65 20 142/81 (101) 97 11/13/20 00:00 97.4 70 20 141/84 (103) 97 11/13/20 00:00 74 11/12/20 21:00 Room Air 11/12/20 20:00 96.0 60 20 120/76 (91) 97 11/12/20 20:00 57 11/12/20 16:00 58 11/12/20 16:00 96.3 59 20 118/70 (86) 98 Intake and Output 11/12/20 11/13/20 19:00 07:00 Intake Total 740 ml Output Total 600 ml 2200 ml Balance 140 ml -2200 ml Intake Oral 240 ml IV Total 500 ml Output Urine Total 600 ml 2200 ml # Bowel Movements 1 Laboratory Tests Test 11/13/20 06:05 White Blood Count 5.1 K/UL (4.8-10.8) Red Blood Count 3.76 M/UL (4.70-6.10) L Hemoglobin 10.6 G/DL (14.2-18.0) L Hematocrit 33.2 % (42.0-52.0) L Mean Corpuscular Volume 88 FL (80-99) Mean Corpuscular Hemoglobin 28.2 PG (27.0-31.0) Mean Corpuscular Hemoglobin Concent 32.0 G/DL (32.0-36.0) Red Cell Distribution Width 16.1 % (11.6-14.8) H Platelet Count 196 K/UL (150-450) Mean Platelet Volume 7.6 FL (6.5-10.1) Neutrophils (%) (Auto) 54.0 % (45.0-75.0) Lymphocytes (%) (Auto) 32.9 % (20.0-45.0) Monocytes (%) (Auto) 8.9 % (1.0-10.0) Eosinophils (%) (Auto) 2.6 % (0.0-3.0) Basophils (%) (Auto) 1.6 % (0.0-2.0) Erythrocyte Sedimentation Rate 78 MM/HR (0-20) H Prothrombin Time 11.3 SEC (9.30-11.50) Prothromb Time International Ratio 1.0 (0.9-1.1) Activated Partial Thromboplast Time 29 SEC (23-33) Sodium Level 144 MMOL/L (136-145) Potassium Level 4.3 MMOL/L (3.5-5.1) Chloride Level 112 MMOL/L (98-107) H Carbon Dioxide Level 26 MMOL/L (21-32) Anion Gap 6 mmol/L (5-15) Blood Urea Nitrogen 40 mg/dL (7-18) H Creatinine 2.3 MG/DL (0.55-1.30) H Estimat Glomerular Filtration Rate 33.3 mL/min (>60) Glucose Level 91 MG/DL (74-106) Uric Acid 6.7 MG/DL (2.6-7.2) Calcium Level 8.9 MG/DL (8.5-10.1) Phosphorus Level 2.4 MG/DL (2.5-4.9) L Magnesium Level 1.8 MG/DL (1.8-2.4) Total Bilirubin 0.8 MG/DL (0.2-1.0) Aspartate Amino Transf (AST/SGOT) 17 U/L (15-37) Alanine Aminotransferase (ALT/SGPT) 17 U/L (12-78) Alkaline Phosphatase 51 U/L (46-116) C-Reactive Protein, Quantitative 12.8 mg/dL (0.00-0.90) H Pro-B-Type Natriuretic Peptide 1712 pg/mL (0-125) H Total Protein 7.1 G/DL (6.4-8.2) Albumin 2.7 G/DL (3.4-5.0) L Globulin 4.4 g/dL Albumin/Globulin Ratio 0.6 (1.0-2.7) L Microbiology Date/Time Source Procedure Growth Status 11/12/20 11:15 Nasopharynx SARS-CoV-2 Antigen (Rapid)(STEPHANIE) - Final Complete Masoud Puente MD Nov 13, 2020 14:11
--- NOTE | 2020-11-13 15:29 | History and Physical Report ---
DATE OF ADMISSION: 11/11/2020 HISTORY OF PRESENT ILLNESS: The patient is an 79-year-old male who presented for evaluation from alf for rectal bleed and coffee-ground emesis. The patient had bright red blood from the rectum in the alf. The patient was evaluated by emergency room physician. Subsequently I am called to admit the patient for further management. COVID-19 screening had been negative ALLERGIES: Codeine. PAST MEDICAL HISTORY: Significant for BPH, diabetes mellitus, chronic kidney disease, seizure disorder, cardiomegaly, and right-sided weakness as a result of possible stroke. PHYSICAL EXAMINATION: GENERAL: The patient does not give any history. VITAL SIGNS: On the day of admission, temperature 97.9, pulse rate 58, respiratory rate 18, and blood pressure 87/61, pulse ox 98%. HEENT: Head is normocephalic. Sclerae not icteric. NECK: Rigid to all directions. HEART: Regular with occasional irregular beats. Normal rate. LUNGS: Decreased breath sound over the bases. ABDOMEN: Soft. EXTREMITIES: Lower extremities, to trace edema. LABORATORY AND DIAGNOSTIC DATA: Initial lab data, creatinine 2.6. Albumin 2.5. Hemoglobin 11.9, white blood cells 7600. PT and PTT normal. Urinalysis had 1+ leukocyte esterase, 2 wbc's, 4+ protein. EKG first-degree AV block. Chest x-ray, cardiomegaly. IMPRESSION: 1. GI bleed, upper and lower. 2. BPH. 3. CKD. 4. Diabetes mellitus. 5. Seizure disorder. 6. Cardiomegaly. 7. First-degree AV block. 8. Right hemiparesis. PLAN: 1. NPO except medications. 2. IV hydration. 3. Kidney ultrasound. 4. Anemia workup. 5. IV Protonix. 6. Urine studies. 7. We will hold losartan and blood pressure medication since patient is hypotensive, 8. We will hold aspirin. 9. Continue Keppra IV. 10. GI and General Surgery consultation. 11. According to how the patient's condition evolves, we make the proper changes in our future management. Moses Tam M.D. DR: Chetan JOB#: [id number] CC:
[2020-11-13 16:00] VITALS: BP 150/91
--- NOTE | 2020-11-13 17:44 | Consultation ---
DATE OF CONSULTATION: 11/13/2020 CARDIOLOGY CONSULTATION CONSULTING PHYSICIAN: Masoud Puente MD. REFERRING PHYSICIAN: Moses Tam MD. REASON FOR CONSULTATION: Bradycardia. HISTORY OF PRESENT ILLNESS: The patient is an 79-year-old gentleman with history of diabetes, chronic kidney disease, benign prostatic hypertrophy, as well as seizure disorder and cardiomegaly who presented [facility] emergency [facility] from [facility] for evaluation of coffee-grounds emesis and rectal bleeding. The patient is confused at baseline. At the time of my evaluation, he is unable to provide any meaningful information. His EKG shows sinus bradycardia in the 50s as well as first-degree AV block. The patient underwent EGD and colonoscopy by Dr. Mcleod that showed atrophic gastritis and significant diverticulosis of the left colon as well as internal hemorrhoids. REVIEW OF SYSTEMS: Negative other than what is mentioned in the history of present illness. PAST MEDICAL HISTORY: As mentioned above. FAMILY HISTORY: Noncontributory. SOCIAL HISTORY: [facility] resident. Does not smoke or drink alcohol. PHYSICAL EXAMINATION: VITAL SIGNS: Blood pressure is 134/79, pulse , respirations 18. He is afebrile. HEAD AND NECK: Shows no JVD. LUNGS: Clear. CARDIOVASCULAR: Regular S1 and S2 with no gallop or murmur. ABDOMEN: Soft. EXTREMITIES: No pitting edema. LABORATORY DATA: White count of 5.1, hemoglobin 10.7, hematocrit of 33.2, platelet count 196. Sodium 144, potassium 4.3, BUN of 40, creatinine 2.3, and glucose of 91. BNP is 1336 and 1712. ASSESSMENT AND PLAN: 1. History of cardiomegaly and congestive heart failure. BNP of 1700. We will get an echocardiogram for further evaluation and management. It is of note the patient also has renal failure with creatinine of 2.4. 2. Bradycardia. The patient's heart rate improved. The patient off any sinus or AV bhavana blocking agents and may related to the patient's Keppra. 3. History of seizure disorder on Keppra. 4. Gastrointestinal bleed status post EGD and colonoscopy by Dr. Mcleod. 5. Chronic renal failure. 6. Diabetes. Thank you very much for allowing me to participate in the care of this patient. Please do not hesitate to contact me for any questions regarding my evaluation. Sincerely, Masoud Puente M.D. DR: Capo JOB#: [id number] CC:
--- NOTE | 2020-11-13 19:41 | NUR ---
NURSE NOTES: Report received form MARIA L Cadena. Patient is asleep on bed in stable condition. cafeteria monitor is in place, shows sinus rhythm. On room air, saturating 95-97% and no acute distress noted at this time. Patient is on renal, mechanical soft-ground, nectar thick liquid. With Amin catheter in place, drained via gravity with light augustine urine colored output. IV site is on left hand g-20 saline locked that is patent and intact. Safety measures are in place, bed in lowest and locked position, seizure precaution observed, side rails up x 2, will continue plan of care.
[2020-11-13 20:00] VITALS: BP 145/86
[2020-11-13] MEDS ORDERED: Tamsulosin 0.4mg cap ORAL SCH (21:00)
[2020-11-14] VITALS: BP 141/82
[2020-11-14 04:00] VITALS: BP 135/82
--- NOTE | 2020-11-14 06:12 | NUR ---
NURSE NOTES: 12L EKG done, showed Sinus rhythm with ST and T wave abnormality.
[2020-11-14 06:45] LABS: BASOPHILS % (AUTO) 0.8 % (0.0-2.0); EOSINOPHILS % (AUTO) 3.7 % (0.0-3.0); HEMATOCRIT 32.4 % (42.0-52.0); LYMPHOCYTES % (AUTO) 40.4 % (20.0-45.0); MEAN CORPUSCULAR VOLUME 88 FL (80-99); MONOCYTES % (AUTO) 10.7 % (1.0-10.0); NEUTROPHILS % (AUTO) 44.4 % (45.0-75.0); PLATELET COUNT 204 K/UL (150-450); RED BLOOD COUNT 3.69 M/UL (4.70-6.10); WHITE BLOOD COUNT 4.2 K/UL (4.8-10.8)
--- NOTE | 2020-11-14 07:21 | NUR ---
NURSE HAND-OFF REPORT: Important Events on Shift: Patient has been resting well the whole shift with no episode of distress Patient Status: Patient is awake on bed in stable condition. Palan of care endorsed. Diet: Renal mechanical soft, nectar thisck Pending Orders: none Pending Results/Labs:AM Labs Pending MD notification:none Latest Vital Signs: Temperature 97.2 , Pulse 56 , B/P 135 /82 , Respiratory Rate 20 , O2 SAT 97 , Room Air, O2 Flow Rate 6 . Vital Sign Comment: stable EKG Rhythm: Sinus Bradycardia Rhythm change?: N MD Notified?: - MD Response: Latest Hernandez Fall Score: 70 Fall Risk: High Risk Safety Measures: Call light Within Reach, Bed Alarm Zone 1, Side Rails Side Rails x3, Bed position Low and Locked. Fall Precautions: Yellow Socks Yellow Gown Door Sign Patient Fall Education Report given to MARIA L Cadena.
[2020-11-14 08:00] VITALS: BP 130/80
[2020-11-14] MEDS: Docusate 100mg cap ORAL SCH ×3 (09:05→17:35)
--- NOTE | 2020-11-14 10:12 | Surgery Progress Note ---
Surgery Progress Note Subjective Symptoms: improved, tolerating diet, passing flatus Additional Comments states feel well no n/v wants to go back to facility h/h stable no bleeding Objective Last 24 Hour Vital Signs Date Time Temp Pulse Resp B/P (MAP) Pulse Ox O2 Delivery O2 Flow Rate FiO2 11/14/20 09:00 Room Air 11/14/20 08:00 71 11/14/20 08:00 98.6 70 19 130/80 (97) 98 11/14/20 04:00 56 11/14/20 04:00 97.2 62 20 135/82 (99) 97 11/14/20 00:00 97.5 63 20 141/82 (101) 98 11/14/20 00:00 65 11/13/20 21:00 Room Air 11/13/20 20:00 57 11/13/20 20:00 97.3 63 20 145/86 (105) 97 11/13/20 16:00 97.7 61 18 150/91 (110) 98 11/13/20 16:00 64 11/13/20 12:00 61 11/13/20 12:00 96.7 81 20 123/74 (90) 96 I&O Intake and Output 11/13/20 11/14/20 19:00 07:00 Intake Total 120 ml Output Total 1200 ml 2700 ml Balance -1080 ml -2700 ml Intake Oral 120 ml Output Urine Total 1200 ml 2700 ml # Voids 3 Dressing: dry Wound: clean Cardiovascular: RSR Respiratory: clear Abdomen: soft, non-tender, present bowel sounds, non-distended Extremities: no edema, no tenderness, no cyanosis Laboratory Tests Test 11/14/20 05:19 White Blood Count 4.2 K/UL (4.8-10.8) L Red Blood Count 3.69 M/UL (4.70-6.10) L Hemoglobin 10.0 G/DL (14.2-18.0) L Hematocrit 32.4 % (42.0-52.0) L Mean Corpuscular Volume 88 FL (80-99) Mean Corpuscular Hemoglobin 27.1 PG (27.0-31.0) Mean Corpuscular Hemoglobin Concent 30.9 G/DL (32.0-36.0) L Red Cell Distribution Width 16.0 % (11.6-14.8) H Platelet Count 204 K/UL (150-450) Mean Platelet Volume 7.2 FL (6.5-10.1) Neutrophils (%) (Auto) 44.4 % (45.0-75.0) L Lymphocytes (%) (Auto) 40.4 % (20.0-45.0) Monocytes (%) (Auto) 10.7 % (1.0-10.0) H Eosinophils (%) (Auto) 3.7 % (0.0-3.0) H Basophils (%) (Auto) 0.8 % (0.0-2.0) Troponin I 0.016 ng/mL (0.000-0.056) Pro-B-Type Natriuretic Peptide 2466 pg/mL (0-125) H Thyroid Stimulating Hormone (TSH) 3.426 uiU/mL (0.358-3.740) Plan Problems: (1) Renal failure (2) GI bleed Assessment & Plan: 79-year-old male with possible GI bleed. Coffee-ground emesis. Hemoglobin noted. Exam fairly benign. Currently no nausea vomiting fever chills. GI eval for possible upper and lower scope. Trend labs. PRBC as needed. Imaging noted. No acute surgical intervention planned at this time. We will follow the recommendations and available in the event bleeding ongoing and requires intervention. Mr. Miles from from [facility] on 11/11/2020 for rectal bleeding and coffee-ground emesis. On arrival he was hypotensive (87/61). H/H was at his baseline 11.9/38.1. His creatine is slightly elevated from 2.39 to 2.6. He admitted [facility] for further work up for GI bleed. He underwent the EGD an d colonoscopy today. The findings were atrophic gastritis s.p biopsy of antrum, inconclusive colonoscopy due to suboptimal preparation for visualization. 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 He is currently clear liquid diet per GI. PMH: BPH, CKD, Cardiomegaly, and seizure. Findings: Mr. 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 He uses great facial expression and gestures to express himself. He follows simple commands with visual cues. His voice is intact. Given him thin liquid via straw, he was able to self drink with left hand and swallowed without clinical concerns. Oral mucosa is clear. Interpretation: 1. Functional oropharyngeal swallow 2. 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 Mechanical soft diet and thin liquid if cleared by GI 2. Supportive communication -May benefit from [facility] and Language Evaluation at his [facility] facility Kei Love Nov 14, 2020 10:12
--- NOTE | 2020-11-14 10:14 | NUR ---
RD ASSESSMENT & RECOMMENDATIONS SEE CARE ACTIVITY FOR COMPLETE ASSESSMENT DAILY ESTIMATED NEEDS: Needs based on Cardiac, DM 92kg abw 25-30 kcals/kg 8054-7821 total kcals 1-1.5 g protein/kg 92-138 g total protein 25-30 mL/kg 8951-4424 total fluid mLs NUTRITION DIAGNOSIS: Altered nutrition related lab values r/t clinical status as evidenced by A1C 6.5, elev Creat (2.3), low Hgb(10.0). CURRENT DIET: Renal ms ground, NTL PO DIET RECOMMENDATIONS: Low Na diet (texture per [facility] ADDITIONAL RECOMMENDATIONS: 1) Maintain daily weights 2) Add snacks in b/w meals w/ current variable po intake Ensure Enlive qdaily Nepro w/ current renal diet 3) bed side BG checks
--- NOTE | 2020-11-14 10:29 | Pulmonology Progress Note ---
Subjective ROS Limited/Unobtainable: No Interval Events: none major reported per nursing Constitutional: Reports: no symptoms HEENT: Repors: no symptoms Respiratory: Reports: no symptoms Cardiovascular: Reports: no symptoms Gastrointestinal/Abdominal: Reports: no symptoms Allergies: Coded Allergies: CODEINE (Verified Allergy, Unknown, 11/11/20) Objective Last 24 Hour Vital Signs Date Time Temp Pulse Resp B/P (MAP) Pulse Ox O2 Delivery O2 Flow Rate FiO2 11/14/20 09:00 Room Air 11/14/20 08:00 71 11/14/20 08:00 98.6 70 19 130/80 (97) 98 11/14/20 04:00 56 11/14/20 04:00 97.2 62 20 135/82 (99) 97 11/14/20 00:00 97.5 63 20 141/82 (101) 98 11/14/20 00:00 65 11/13/20 21:00 Room Air 11/13/20 20:00 57 11/13/20 20:00 97.3 63 20 145/86 (105) 97 11/13/20 16:00 97.7 61 18 150/91 (110) 98 11/13/20 16:00 64 11/13/20 12:00 61 11/13/20 12:00 96.7 81 20 123/74 (90) 96 Intake and Output 11/13/20 11/14/20 19:00 07:00 Intake Total 120 ml Output Total 1200 ml 2700 ml Balance -1080 ml -2700 ml Intake Oral 120 ml Output Urine Total 1200 ml 2700 ml # Voids 3 General Appearance: no acute distress HEENT: atraumatic Respiratory: lungs clear Cardiovascular: normal rate, regular rhythm Abdomen: soft, non tender Microbiology Date/Time Source Procedure Growth Status 11/12/20 11:15 Nasopharynx SARS-CoV-2 Antigen (Rapid)(STEPHANIE) - Final Complete Laboratory Tests 11/14/20 05:19: White Blood Count 4.2L, Red Blood Count 3.69L, Hemoglobin 10.0L, Hematocrit 32.4L, Mean Corpuscular Volume 88, Mean Corpuscular Hemoglobin 27.1, Mean Corpuscular Hemoglobin Concent 30.9L, Red Cell Distribution Width 16.0H, Platelet Count 204, Mean Platelet Volume 7.2, Neutrophils (%) (Auto) 44.4L, Lymphocytes (%) (Auto) 40.4, Monocytes (%) (Auto) 10.7H, Eosinophils (%) (Auto) 3.7H, Basophils (%) (Auto) 0.8, Troponin I 0.016, Pro-B-Type Natriuretic Peptide 2466H, Thyroid Stimulating Hormone (TSH) 3.426 Current Medications Medications (Trade) Dose Ordered Sig/Lonnie Route PRN Reason Start Time Stop Time Status Last Admin Dose Admin Acetaminophen (Tylenol) 650 mg Q4H PRN ORAL Mild Pain (Pain Scale 1-3) 11/13/20 14:15 12/13/20 14:14 11/13/20 20:19 Barium Sulfate (Varibar Honey) 250 ml NOW PRN MC RAD 11/11/20 14:00 11/14/20 13:54 Barium Sulfate (Varibar [place]) 240 ml NOW PRN MC RAD 11/11/20 14:00 11/14/20 13:54 Barium Sulfate (Varibar Pudding) 230 ml NOW PRN MC RAD 11/11/20 14:00 11/14/20 13:54 Barium Sulfate (Varibar Thin Liquid powder) 148 gm NOW PRN MC RAD 11/11/20 14:00 11/14/20 13:54 Docusate Sodium (Colace) 100 mg THREE TIMES A DAY ORAL 11/11/20 18:00 12/11/20 17:59 11/14/20 09:05 Finasteride (Proscar) 5 mg DAILY ORAL 11/14/20 09:00 02/12/21 08:59 11/14/20 09:05 Lansoprazole (Prevacid) 30 mg BID ORAL 11/13/20 18:00 12/13/20 17:59 11/14/20 09:05 Levetiracetam (Keppra) 750 mg Q12HR ORAL 11/13/20 21:00 12/28/20 20:59 11/14/20 09:05 Tamsulosin HCl (Flomax) 0.4 mg BEDTIME ORAL 11/13/20 21:00 12/13/20 20:59 11/13/20 20:10 Assessment/Plan Assessment/Plan 1. History of seizure disorder and risk for aspiration -Continue Keppra -Monitor for fever - f/u chest x-ray if indicated 2.Diabetes mellitus with hyperglycemia -BG control 3. Renal failure -Per primary 4. GI bleeding - s/p Zofran, Protonix - s/p EGD/Col (11/12): atrophic gastritis, diverticulosis, internal hemorrhoids; management per GI 5. CXR - Lucency under the L hemidiaphragm, suspect gastric distension - monitor The care for this patient was discussed with my supervising physician. Time spent for this case was approximately 31 minutes. Brenden Patel Nov 14, 2020 10:29
--- NOTE | 2020-11-14 10:35 | Cardiac Electrophysiology PN ---
Assessment/Plan Assessment/Plan 1. History of cardiomegaly and congestive heart failure. BNP of 1700. Echocardiogram showed EF 60%. Also has renal failure with creatinine of 2.4. 2. Bradycardia. The patient's heart rate improved. The patient off any sinus or AV bhavana blocking agents and may related to the patient's Keppra. 3. History of seizure disorder on Keppra. 4. Gastrointestinal bleed status post EGD and colonoscopy by Dr. Mcleod. 5. Chronic renal failure. 6. Diabetes. Subjective Subjective Had sinus brooklynn when sleeping in 50s. Non verbal. RN at bedside Objective Last 24 Hour Vital Signs Date Time Temp Pulse Resp B/P (MAP) Pulse Ox O2 Delivery O2 Flow Rate FiO2 11/14/20 09:00 Room Air 11/14/20 08:00 71 11/14/20 08:00 98.6 70 19 130/80 (97) 98 11/14/20 04:00 56 11/14/20 04:00 97.2 62 20 135/82 (99) 97 11/14/20 00:00 97.5 63 20 141/82 (101) 98 11/14/20 00:00 65 11/13/20 21:00 Room Air 11/13/20 20:00 57 11/13/20 20:00 97.3 63 20 145/86 (105) 97 11/13/20 16:00 97.7 61 18 150/91 (110) 98 11/13/20 16:00 64 11/13/20 12:00 61 11/13/20 12:00 96.7 81 20 123/74 (90) 96 Intake and Output 11/13/20 11/14/20 19:00 07:00 Intake Total 120 ml Output Total 1200 ml 2700 ml Balance -1080 ml -2700 ml Intake Oral 120 ml Output Urine Total 1200 ml 2700 ml # Voids 3 Laboratory Tests Test 11/14/20 05:19 White Blood Count 4.2 K/UL (4.8-10.8) L Red Blood Count 3.69 M/UL (4.70-6.10) L Hemoglobin 10.0 G/DL (14.2-18.0) L Hematocrit 32.4 % (42.0-52.0) L Mean Corpuscular Volume 88 FL (80-99) Mean Corpuscular Hemoglobin 27.1 PG (27.0-31.0) Mean Corpuscular Hemoglobin Concent 30.9 G/DL (32.0-36.0) L Red Cell Distribution Width 16.0 % (11.6-14.8) H Platelet Count 204 K/UL (150-450) Mean Platelet Volume 7.2 FL (6.5-10.1) Neutrophils (%) (Auto) 44.4 % (45.0-75.0) L Lymphocytes (%) (Auto) 40.4 % (20.0-45.0) Monocytes (%) (Auto) 10.7 % (1.0-10.0) H Eosinophils (%) (Auto) 3.7 % (0.0-3.0) H Basophils (%) (Auto) 0.8 % (0.0-2.0) Troponin I 0.016 ng/mL (0.000-0.056) Pro-B-Type Natriuretic Peptide 2466 pg/mL (0-125) H Thyroid Stimulating Hormone (TSH) 3.426 uiU/mL (0.358-3.740) Microbiology Date/Time Source Procedure Growth Status 11/12/20 11:15 Nasopharynx SARS-CoV-2 Antigen (Rapid)(STEPHANIE) - Final Complete Objective HEAD AND NECK: Shows no JVD. LUNGS: Clear. CARDIOVASCULAR: Regular S1 and S2 with no gallop or murmur. ABDOMEN: Soft. EXTREMITIES: No pitting edema. Masoud Puente MD Nov 14, 2020 10:35
[2020-11-14 12:15] VITALS: BP 141/80
--- NOTE | 2020-11-14 12:32 | General Progress Note ---
Subjective Date patient seen: Nov 14, 2020 Time patient seen: 10:00 ROS Limited/Unobtainable: No Allergies: Coded Allergies: CODEINE (Verified Allergy, Unknown, 11/11/20) Objective Last 24 Hour Vital Signs Date Time Temp Pulse Resp B/P (MAP) Pulse Ox O2 Delivery O2 Flow Rate FiO2 11/14/20 12:15 97.3 76 21 141/80 (100) 98 11/14/20 09:00 Room Air 11/14/20 08:00 71 11/14/20 08:00 98.6 70 19 130/80 (97) 98 11/14/20 04:00 56 11/14/20 04:00 97.2 62 20 135/82 (99) 97 11/14/20 00:00 97.5 63 20 141/82 (101) 98 11/14/20 00:00 65 11/13/20 21:00 Room Air 11/13/20 20:00 57 11/13/20 20:00 97.3 63 20 145/86 (105) 97 11/13/20 16:00 97.7 61 18 150/91 (110) 98 11/13/20 16:00 64 Intake and Output 11/13/20 11/14/20 19:00 07:00 Intake Total 120 ml Output Total 1200 ml 2700 ml Balance -1080 ml -2700 ml Intake Oral 120 ml Output Urine Total 1200 ml 2700 ml # Voids 3 Current Medications Medications (Trade) Dose Ordered Sig/Lonnie Route PRN Reason Start Time Stop Time Status Last Admin Dose Admin Acetaminophen (Tylenol) 650 mg Q4H PRN ORAL Mild Pain (Pain Scale 1-3) 11/13/20 14:15 12/13/20 14:14 11/13/20 20:19 Barium Sulfate (Varibar Honey) 250 ml NOW PRN MC RAD 11/11/20 14:00 11/14/20 13:54 Barium Sulfate (Varibar [place]) 240 ml NOW PRN MC RAD 11/11/20 14:00 11/14/20 13:54 Barium Sulfate (Varibar Pudding) 230 ml NOW PRN MC RAD 11/11/20 14:00 11/14/20 13:54 Barium Sulfate (Varibar Thin Liquid powder) 148 gm NOW PRN MC RAD 11/11/20 14:00 11/14/20 13:54 Docusate Sodium (Colace) 100 mg THREE TIMES A DAY ORAL 11/11/20 18:00 12/11/20 17:59 11/14/20 09:05 Finasteride (Proscar) 5 mg DAILY ORAL 11/14/20 09:00 02/12/21 08:59 11/14/20 09:05 Lansoprazole (Prevacid) 30 mg BID ORAL 11/13/20 18:00 12/13/20 17:59 11/14/20 09:05 Levetiracetam (Keppra) 750 mg Q12HR ORAL 11/13/20 21:00 12/28/20 20:59 11/14/20 09:05 Tamsulosin HCl (Flomax) 0.4 mg BEDTIME ORAL 11/13/20 21:00 12/13/20 20:59 11/13/20 20:10 Laboratory Tests 11/14/20 05:19: White Blood Count 4.2L, Red Blood Count 3.69L, Hemoglobin 10.0L, Hematocrit 32.4L, Mean Corpuscular Volume 88, Mean Corpuscular Hemoglobin 27.1, Mean Corpuscular Hemoglobin Concent 30.9L, Red Cell Distribution Width 16.0H, Pl atelet Count 204, Mean Platelet Volume 7.2, Neutrophils (%) (Auto) 44.4L, Lymphocytes (%) (Auto) 40.4, Monocytes (%) (Auto) 10.7H, Eosinophils (%) (Auto) 3.7H, Basophils (%) (Auto) 0.8, Troponin I 0.016, Pro-B-Type Natriuretic Peptide 2466H, Thyroid Stimulating Hormone (TSH) 3.426 Height (Feet): 6 Height (Inches): 2.00 Weight (Pounds): 180 General Appearance: no apparent distress Cardiovascular: normal rate, arrhythmia - Times bradycardic Respiratory/Chest: decreased breath sounds Abdomen: soft Assessment/Plan Problem List: (1) Renal failure (ARF), acute on chronic ICD Codes: N17.9 - Acute kidney failure, unspecified; N18.9 - Chronic kidney disease, unspecified SNOMED: 927911479 (2) GI bleed ICD Codes: K92.2 - Gastrointestinal hemorrhage, unspecified SNOMED: 84440403 Qualifiers: Qualified Codes: K92.2 - Gastrointestinal hemorrhage, unspecified (3) Anemia ICD Codes: D64.9 - Anemia, unspecified SNOMED: 056848916 (4) BPH (benign prostatic hyperplasia) ICD Codes: N40.0 - Benign prostatic hyperplasia without lower urinary tract symptoms SNOMED: 903542254 (5) Seizure disorder ICD Codes: G40.909 - Epilepsy, unspecified, not intractable, without status epilepticus SNOMED: 891885597 (6) DMII (diabetes mellitus, type 2) ICD Codes: E11.9 - Type 2 diabetes mellitus without complications SNOMED: 68523581 (7) Hypotension Assessment & Plan: On presentation ICD Codes: I95.9 - Hypotension, unspecified SNOMED: 01984502 Status: stable Assessment/Plan: November 14: Hemoglobin at its lowest which is 10 today. No CHEM panel drawn today. Will discontinue Amin. Will increase Flomax to twice daily. IV fluid discontinued. Consultants notes all appreciated. Will plan to DC tomorrow. November 13: Hemoglobin stable. Upper and lower endoscopy results noted. Seems GI bleed was as a result of the diverticular source. Medication list reviewed. Diet advanced. Cardiology advised for abnormal heart rate requested. Aim to DC tomorrow if hemoglobin hematocrit stable. Continue per orders. Tylenol for pain Previously GI ritchie, monitor H&H per consultants kidney TEX noted Per orders discussed with Moses Pedroza MD Nov 14, 2020 12:32
[2020-11-14] MEDS: Tamsulosin 0.4mg cap ORAL SCH ×2 (12:44→17:35)
--- NOTE | 2020-11-14 14:05 | General Progress Note ---
Subjective ROS Limited/Unobtainable: No Allergies: Coded Allergies: CODEINE (Verified Allergy, Unknown, 11/11/20) Objective Last 24 Hour Vital Signs Date Time Temp Pulse Resp B/P (MAP) Pulse Ox O2 Delivery O2 Flow Rate FiO2 11/14/20 12:15 97.3 76 21 141/80 (100) 98 11/14/20 12:00 58 11/14/20 09:00 Room Air 11/14/20 08:00 71 11/14/20 08:00 98.6 70 19 130/80 (97) 98 11/14/20 04:00 56 11/14/20 04:00 97.2 62 20 135/82 (99) 97 11/14/20 00:00 97.5 63 20 141/82 (101) 98 11/14/20 00:00 65 11/13/20 21:00 Room Air 11/13/20 20:00 57 11/13/20 20:00 97.3 63 20 145/86 (105) 97 11/13/20 16:00 97.7 61 18 150/91 (110) 98 11/13/20 16:00 64 Intake and Output 11/13/20 11/14/20 19:00 07:00 Intake Total 120 ml Output Total 1200 ml 2700 ml Balance -1080 ml -2700 ml Intake Oral 120 ml Output Urine Total 1200 ml 2700 ml # Voids 3 Laboratory Tests 11/14/20 05:19: White Blood Count 4.2L, Red Blood Count 3.69L, Hemoglobin 10.0L, Hematocrit 32.4L, Mean Corpuscular Volume 88, Mean Corpuscular Hemoglobin 27.1, Mean Corpuscular Hemoglobin Concent 30.9L, Red Cell Distribution Width 16.0H, Platelet Count 204, Mean Platelet Volume 7.2, Neutrophils (%) (Auto) 44.4L, Lymphocytes (%) (Auto) 40.4, Monocytes (%) (Auto) 10.7H, Eosinophils (%) (Auto) 3.7H, Basophils (%) (Auto) 0.8, Troponin I 0.016, Pro-B-Type Natriuretic Peptide 2466H, Thyroid Stimulating Hormone (TSH) 3.426 Height (Feet): 6 Height (Inches): 2.00 Weight (Pounds): 180 General Appearance: no apparent distress EENT: normal ENT inspection Neck: supple Cardiovascular: normal rate Respiratory/Chest: decreased breath sounds Abdomen: normal bowel sounds, non tender, soft Extremities: non-tender Assessment/Plan Problem List: (1) GI bleed ICD Codes: K92.2 - Gastrointestinal hemorrhage, unspecified SNOMED: 19763639 Qualifiers: Qualified Codes: K92.2 - Gastrointestinal hemorrhage, unspecified (2) Renal failure ICD Codes: N19 - Unspecified kidney failure SNOMED: 78305495 Qualifiers: Qualified Codes: N19 - Unspecified kidney failure Status: stable Assessment/Plan: s/p EGD and colonoscopy: SUMMARY OF FINDINGS: 1. Atrophic gastritis status post biopsy. 2. Incomplete colonoscopy examination given poor prep. 3. Old blood seen in the colon, possibly from diverticular bleed. 4. Significant diverticulosis of left colon. 5. Internal hemorrhoids. RECOMMENDATIONS: 1. Monitor hemoglobin and hematocrit, transfuse as needed. 2. Followup biopsy results. 3. advance diet to renal Gael Mcleod MD Nov 14, 2020 14:05
[2020-11-14 16:00] VITALS: BP 129/62
[2020-11-14 20:00] VITALS: BP 139/87
--- NOTE | 2020-11-14 20:30 | NUR ---
NURSE NOTES: Assumed pt's care at 1900 from MARIA L Cadena. Pt is alert with expressive dysphagia, no acute distress noted, remains on room air. Respirations even and unlabored. Voiding with no difficulties, voided 200cc clear yellow urine, continent of urine and uses urinal. Repositioned while in bed as tolerated. Safety and comfort measures maintained, call light within reach.
[2020-11-15 00:16] VITALS: BP 132/82
[2020-11-15 03:56] VITALS: BP 132/82
[2020-11-15 04:29] VITALS: BP 139/86
--- NOTE | 2020-11-15 06:47 | NUR ---
NURSE NOTES: Pt slept throughout shift, uneventful night. No seizure activities noted, seizure precautions in placed. Pt had a large semi formed BM. Repositioned frequently as tolerated. Safety and comfort measures maintained, call light within reach.
--- NOTE | 2020-11-15 07:08 | NUR ---
NURSE NOTES: received patient report from faby garcia. patient is on bed asleep. not in acute distress. no acute events reported last night, NSR, with occ PVCs. voiding after bullock removal yesterday. bed is low and locked for safety. will follow plan of care.
--- NOTE | 2020-11-15 07:24 | NUR ---
NURSE HAND-OFF REPORT: Important Events on Shift: Patient Status: Diet: Pending Orders: Pending Results/Labs: Pending MD notification: Latest Vital Signs: Temperature 97.3 , Pulse 76 , B/P 139 /86 , Respiratory Rate 20 , O2 SAT 97 , Room Air, O2 Flow Rate 6 . Vital Sign Comment: EKG Rhythm: SR w interm PACs 1st AVB, ventric couplet Rhythm change?: N MD Notified?: - MD Response: Latest Hernandez Fall Score: 70 Fall Risk: High Risk Safety Measures: Call light Within Reach, Bed Alarm Zone 1, Side Rails Side Rails x3, Bed position Low and Locked. Fall Precautions: Yellow Socks Yellow Gown Door Sign Patient Fall Education Report given to .
[2020-11-15 07:31] LABS: BASOPHILS % (AUTO) 1.2 % (0.0-2.0); EOSINOPHILS % (AUTO) 3.3 % (0.0-3.0); HEMATOCRIT 31.6 % (42.0-52.0); HEMOGLOBIN 10.2 G/DL (14.2-18.0); LYMPHOCYTES % (AUTO) 35.3 % (20.0-45.0); MEAN CORPUSCULAR VOLUME 87 FL (80-99); MONOCYTES % (AUTO) 10.6 % (1.0-10.0); NEUTROPHILS % (AUTO) 49.6 % (45.0-75.0); PLATELET COUNT 198 K/UL (150-450); RED BLOOD COUNT 3.62 M/UL (4.70-6.10); RED CELL DISTRIBUTION WIDTH 15.5 % (11.6-14.8); WHITE BLOOD COUNT 4.8 K/UL (4.8-10.8)
[2020-11-15 07:55] LABS: ALBUMIN 2.5 G/DL (3.4-5.0); ALBUMIN/GLOBULIN RATIO 0.6 (1.0-2.7); BILIRUBIN,TOTAL 0.6 MG/DL (0.2-1.0); CALCIUM 9.2 MG/DL (8.5-10.1); CREATININE 2.4 MG/DL (0.55-1.30); POTASSIUM 3.8 MMOL/L (3.5-5.1)
[2020-11-15] MEDS ORDERED: LANSOPRAZOLE30 MG ORAL (07:56)
[2020-11-15] MEDS ORDERED: FLOMAX0.4 MG ORAL (07:56)
[2020-11-15] MEDS ORDERED: COLACE100 MG ORAL (07:56)
[2020-11-15] MEDS ORDERED: AMLODIPINE BESY10 MG ORAL (07:56)
--- NOTE | 2020-11-15 07:58 | Discharge Instructions ---
Discharge Instructions Discharge Instructions Follow up with: PMD Call MD/Return to Hospital if: Fever Vomit GI bleed Diet: renal (80g protein, 2GM) Activity: other - PT eval For Congestive Heart Failure Reminder Report to your physician any weight gain of 5 pounds or more in one week. Moses Tam MD Nov 15, 2020 07:58
--- NOTE | 2020-11-15 07:59 | General Progress Note ---
Subjective Date patient seen: Nov 15, 2020 Time patient seen: 12:00 Constitutional: Reports: no symptoms Allergies: Coded Allergies: CODEINE (Verified Allergy, Unknown, 11/11/20) Objective Last 24 Hour Vital Signs Date Time Temp Pulse Resp B/P (MAP) Pulse Ox O2 Delivery O2 Flow Rate FiO2 11/15/20 04:29 97.3 76 20 139/86 (103) 97 11/15/20 04:28 86 11/15/20 03:56 97.4 101 20 132/82 (99) 98 11/15/20 00:16 97.4 101 20 132/82 (99) 98 11/15/20 00:00 86 11/15/20 00:00 64 11/14/20 21:40 Room Air 11/14/20 20:30 58 11/14/20 20:00 97.2 60 20 139/87 (104) 99 11/14/20 16:00 87 11/14/20 16:00 98.6 72 19 129/62 (84) 97 11/14/20 12:15 97.3 76 21 141/80 (100) 98 11/14/20 12:00 58 11/14/20 09:00 Room Air 11/14/20 08:00 71 11/14/20 08:00 98.6 70 19 130/80 (97) 98 Intake and Output 11/14/20 11/15/20 19:00 07:00 Intake Total 240 ml 240 ml Output Total 500 ml 1200 ml Balance -260 ml -960 ml Intake Oral 240 ml 240 ml Output Urine Total 500 ml 1200 ml # Voids 2 6 # Bowel Movements 1 2 Current Medications Medications (Trade) Dose Ordered Sig/Lonnie Route PRN Reason Start Time Stop Time Status Last Admin Dose Admin Acetaminophen (Tylenol) 650 mg Q4H PRN ORAL Mild Pain (Pain Scale 1-3) 11/13/20 14:15 12/13/20 14:14 11/13/20 20:19 Docusate Sodium (Colace) 100 mg THREE TIMES A DAY ORAL 11/11/20 18:00 12/11/20 17:59 11/15/20 08:40 Finasteride (Proscar) 5 mg DAILY ORAL 11/14/20 09:00 02/12/21 08:59 11/15/20 08:40 Lansoprazole (Prevacid) 30 mg BID ORAL 11/13/20 18:00 12/13/20 17:59 11/15/20 08:40 Levetiracetam (Keppra) 750 mg Q12HR ORAL 11/13/20 21:00 12/28/20 20:59 11/15/20 08:40 Tamsulosin HCl (Flomax) 0.4 mg BID ORAL 11/14/20 12:30 12/13/20 20:59 11/15/20 08:40 Laboratory Tests 11/15/20 06:50: White Blood Count 4.8, Red Blood Count 3.62L, Hemoglobin 10.2L, Hematocrit 31.6L , Mean Corpuscular Volume 87, Mean Corpuscular Hemoglobin 28.0, Mean Corpuscular Hemoglobin Concent 32.2, Red Cell Distribution Width 15.5H, Platelet Count 198, Mean Platelet Volume 7.2, Neutrophils (%) (Auto) 49.6, Lymphocytes (%) (Auto) 35.3, Monocytes (%) (Auto) 10.6H, Eosinophils (%) (Auto) 3.3H, Basophils (%) (Auto) 1.2, Sodium Level 143, Potassium Level 3.8, Chloride Level 109H, Carbon Dioxide Level 28, Anion Gap 7, Blood Urea Nitrogen 31H, Creatinine 2.4H, Estimat Glomerular Filtration Rate 31.8, Glucose Level 98, Uric Acid 7.1, Calcium Level 9.2, Phosphorus Level 3.0, Magnesium Level 1.9, Total Bilirubin 0.6, Aspartate Amino Transf (AST/SGOT) 11L, Alanine Aminotransferase (ALT/SGPT) 16, Alkaline Phosphatase 57, C-Reactive Protein, Quantitative 6.8H, Pro-B-Type Natriuretic Peptide 2606H, Total Protein 6.9, Albumin 2.5L, Globulin 4.4, Albumin/Globulin R atio 0.6L Height (Feet): 6 Height (Inches): 2.00 Weight (Pounds): 180 General Appearance: no apparent distress, lethargic Cardiovascular: normal rate Respiratory/Chest: decreased breath sounds Abdomen: soft Assessment/Plan Problem List: (1) Renal failure (ARF), acute on chronic ICD Codes: N17.9 - Acute kidney failure, unspecified; N18.9 - Chronic kidney disease, unspecified SNOMED: 481738407 (2) GI bleed ICD Codes: K92.2 - Gastrointestinal hemorrhage, unspecified SNOMED: 67204441 Qualifiers: Qualified Codes: K92.2 - Gastrointestinal hemorrhage, unspecified (3) Anemia ICD Codes: D64.9 - Anemia, unspecified SNOMED: 781022734 (4) BPH (benign prostatic hyperplasia) ICD Codes: N40.0 - Benign prostatic hyperplasia without lower urinary tract symptoms SNOMED: 639414191 (5) Seizure disorder ICD Codes: G40.909 - Epilepsy, unspecified, not intractable, without status epilepticus SNOMED: 737950364 (6) DMII (diabetes mellitus, type 2) ICD Codes: E11.9 - Type 2 diabetes mellitus without complications SNOMED: 61942130 (7) Hypotension Assessment & Plan: On presentation ICD Codes: I95.9 - Hypotension, unspecified SNOMED: 70505544 Status: stable Assessment/Plan: November 15: Hemoglobin stable. Chemistries reasonable and unchanged. Medication list reviewed. Will discharge the patient back to [facility]. Primary care physician to follow. Discussed with RN. Medication reconciliation done. November 14: Hemoglobin at its lowest which is 10 today. No CHEM panel drawn today. Will discontinue Amin. Will increase Flomax to twice daily. IV fluid discontinued. Consultants notes all appreciated. Will plan to DC tomorrow. November 13: Hemoglobin stable. Upper and lower endoscopy results noted. Seems GI bleed was as a result of the diverticular source. Medication list reviewed. Diet advanced. Cardiology advised for abnormal heart rate requested. Aim to DC tomorrow if hemoglobin hematocrit stable. Continue per orders. Tylenol for pain Previously GI ritchie, monitor H&H per consultants kidney TEX noted Per orders discussed with Moses Pedroza MD Nov 15, 2020 07:59
[2020-11-15 08:00] VITALS: BP 131/82
[2020-11-15] MEDS: Docusate 100mg cap ORAL SCH (08:40)
[2020-11-15] MEDS: Tamsulosin 0.4mg cap ORAL SCH (08:40)
--- NOTE | 2020-11-15 09:30 | Pulmonology Progress Note ---
Subjective ROS Limited/Unobtainable: No Interval Events: none major reported per nursing Constitutional: Reports: no symptoms HEENT: Repors: no symptoms Respiratory: Reports: no symptoms Cardiovascular: Reports: no symptoms Gastrointestinal/Abdominal: Reports: no symptoms Allergies: Coded Allergies: CODEINE (Verified Allergy, Unknown, 11/11/20) Objective Last 24 Hour Vital Signs Date Time Temp Pulse Resp B/P (MAP) Pulse Ox O2 Delivery O2 Flow Rate FiO2 11/15/20 08:00 97.3 84 20 131/82 (98) 97 11/15/20 04:29 97.3 76 20 139/86 (103) 97 11/15/20 04:28 86 11/15/20 03:56 97.4 101 20 132/82 (99) 98 11/15/20 00:16 97.4 101 20 132/82 (99) 98 11/15/20 00:00 86 11/15/20 00:00 64 11/14/20 21:40 Room Air 11/14/20 20:30 58 11/14/20 20:00 97.2 60 20 139/87 (104) 99 11/14/20 16:00 87 11/14/20 16:00 98.6 72 19 129/62 (84) 97 11/14/20 12:15 97.3 76 21 141/80 (100) 98 11/14/20 12:00 58 Intake and Output 11/14/20 11/15/20 19:00 07:00 Intake Total 240 ml 240 ml Output Total 500 ml 1200 ml Balance -260 ml -960 ml Intake Oral 240 ml 240 ml Output Urine Total 500 ml 1200 ml # Voids 2 6 # Bowel Movements 1 2 General Appearance: no acute distress HEENT: atraumatic Respiratory: lungs clear Cardiovascular: normal rate, regular rhythm Abdomen: soft, non tender Microbiology Date/Time Source Procedure Growth Status 11/12/20 11:15 Nasopharynx SARS-CoV-2 Antigen (Rapid)(STEPHANIE) - Final Complete Laboratory Tests 11/15/20 06:50: White Blood Count 4.8, Red Blood Count 3.62L, Hemoglobin 10.2L, Hematocrit 31.6L , Mean Corpuscular Volume 87, Mean Corpuscular Hemoglobin 28.0, Mean Corpuscular Hemoglobin Concent 32.2, Red Cell Distribution Width 15.5H, Platelet Count 198, Mean Platelet Volume 7.2, Neutrophils (%) (Auto) 49.6, Lymphocytes (%) (Auto) 35.3, Monocytes (%) (Auto) 10.6H, Eosinophils (%) (Auto) 3.3H, Basophils (%) (Auto) 1.2, Sodium Level 143, Potassium Level 3.8, Chloride Level 109H, Carbon Dioxide Level 28, Anion Gap 7, Blood Urea Nitrogen 31H, Creatinine 2.4H, Estimat Glomerular Filtration Rate 31.8, Glucose Level 98, Uric Acid 7.1, Calcium Level 9.2, Phosphorus Level 3.0, Magnesium Level 1.9, Total Bilirubin 0.6, Aspartate Amino Transf (AST/SGOT) 11L, Alanine Aminotransferase (ALT/SGPT) 16, Alkaline Phosphatase 57, C-Reactive Protein, Quantitative 6.8H, Pro-B-Type Natriuretic Peptide 2606H, Total Protein 6.9, Albumin 2.5L, Globulin 4.4, Albumin/Globulin Ratio 0.6L Current Medications Medications (Trade) Dose Ordered Sig/Lonnie Route PRN Reason Start Time Stop Time Status Last Admin Dose Admin Acetaminophen (Tylenol) 650 mg Q4H PRN ORAL Mild Pain (Pain Scale 1-3) 11/13/20 14:15 12/13/20 14:14 11/13/20 20:19 Docusate Sodium (Colace) 100 mg THREE TIMES A DAY ORAL 11/11/20 18:00 12/11/20 17:59 11/15/20 08:40 Finasteride (Proscar) 5 mg DAILY ORAL 11/14/20 09:00 02/12/21 08:59 11/15/20 08:40 Lansoprazole (Prevacid) 30 mg BID ORAL 11/13/20 18:00 12/13/20 17:59 11/15/20 08:40 Levetiracetam (Keppra) 750 mg Q12HR ORAL 11/13/20 21:00 12/28/20 20:59 11/15/20 08:40 Tamsulosin HCl (Flomax) 0.4 mg BID ORAL 11/14/20 12:30 12/13/20 20:59 11/15/20 08:40 Assessment/Plan Assessment/Plan 1. History of seizure disorder and risk for aspiration -Continue Keppra -Monitor for fever - f/u chest x-ray if indicated 2.Diabetes mellitus with hyperglycemia -BG control 3. Renal failure -Per primary 4. GI bleeding - s/p Zofran, Protonix - s/p EGD/[place] (11/12): atrophic gastritis, diverticulosis, internal h emorrhoids; management per GI 5. CXR - Lucency under the L hemidiaphragm, suspect gastric distension - monitor Noted plan for discharge Medically stable for discharge from pulmonary standpoint The care for this patient was discussed with my supervising physician. Time spent for this case was approximately 31 minutes. Brenden Patel Nov 15, 2020 09:30
--- NOTE | 2020-11-15 10:05 | Cardiac Electrophysiology PN ---
Assessment/Plan Assessment/Plan 1. History of cardiomegaly and congestive heart failure. BNP of 1700. Echocardiogram showed EF 60%. Also has renal failure with creatinine of 2.4. 2. Bradycardia. The patient's heart rate improved. The patient off any sinus or AV bhavana blocking agents and may related to the patient's Keppra. 3. History of seizure disorder on Keppra. 4. Gastrointestinal bleed status post EGD and colonoscopy by Dr. Mcleod. 5. Chronic renal failure. 6. Diabetes. DC back to [facility] pending Subjective Subjective Had sinus brooklynn when sleeping in 50s. Non verbal. RN at bedside DC back to [facility] pending Objective Last 24 Hour Vital Signs Date Time Temp Pulse Resp B/P (MAP) Pulse Ox O2 Delivery O2 Flow Rate FiO2 11/15/20 09:00 Room Air 11/15/20 08:00 97.3 84 20 131/82 (98) 97 11/15/20 07:44 75 11/15/20 04:29 97.3 76 20 139/86 (103) 97 11/15/20 04:28 86 11/15/20 03:56 97.4 101 20 132/82 (99) 98 11/15/20 00:16 97.4 101 20 132/82 (99) 98 11/15/20 00:00 86 11/15/20 00:00 64 11/14/20 21:40 Room Air 11/14/20 20:30 58 11/14/20 20:00 97.2 60 20 139/87 (104) 99 11/14/20 16:00 87 11/14/20 16:00 98.6 72 19 129/62 (84) 97 11/14/20 12:15 97.3 76 21 141/80 (100) 98 11/14/20 12:00 58 Intake and Output 11/14/20 11/15/20 19:00 07:00 Intake Total 240 ml 240 ml Output Total 500 ml 1200 ml Balance -260 ml -960 ml Intake Oral 240 ml 240 ml Output Urine Total 500 ml 1200 ml # Voids 2 6 # Bowel Movements 1 2 Laboratory Tests Test 11/15/20 06:50 White Blood Count 4.8 K/UL (4.8-10.8) Red Blood Count 3.62 M/UL (4.70-6.10) L Hemoglobin 10.2 G/DL (14.2-18.0) L Hematocrit 31.6 % (42.0-52.0) L Mean Corpuscular Volume 87 FL (80-99) Mean Corpuscular Hemoglobin 28.0 PG (27.0-31.0) Mean Corpuscular Hemoglobin Concent 32.2 G/DL (32.0-36.0) Red Cell Distribution Width 15.5 % (11.6-14.8) H Platelet Count 198 K/UL (150-450) Mean Platelet Volume 7.2 FL (6.5-10.1) Neutrophils (%) (Auto) 49.6 % (45.0-75.0) Lymphocytes (%) (Auto) 35.3 % (20.0-45.0) Monocytes (%) (Auto) 10.6 % (1.0-10.0) H Eosinophils (%) (Auto) 3.3 % (0.0-3.0) H Basophils (%) (Auto) 1.2 % (0.0-2.0) Sodium Level 143 MMOL/L (136-145) Potassium Level 3.8 MMOL/L (3.5-5.1) Chloride Level 109 MMOL/L (98-107) H Carbon Dioxide Level 28 MMOL/L (21-32) Anion Gap 7 mmol/L (5-15) Blood Urea Nitrogen 31 mg/dL (7-18) H Creatinine 2.4 MG/DL (0.55-1.30) H Estimat Glomerular Filtration Rate 31.8 mL/min (>60) Glucose Level 98 MG/DL (74-106) Uric Acid 7.1 MG/DL (2.6-7.2) Calcium Level 9.2 MG/DL (8.5-10.1) Phosphorus Level 3.0 MG/DL (2.5-4.9) Magnesium Level 1.9 MG/DL (1.8-2.4) Total Bilirubin 0.6 MG/DL (0.2-1.0) Aspartate Amino Transf (AST/SGOT) 11 U/L (15-37) L Alanine Aminotransferase (ALT/SGPT) 16 U/L (12-78) Alkaline Phosphatase 57 U/L (46-116) C-Reactive Protein, Quantitative 6.8 mg/dL (0.00-0.90) H Pro-B-Type Natriuretic Peptide 2606 pg/mL (0-125) H Total Protein 6.9 G/DL (6.4-8.2) Albumin 2.5 G/DL (3.4-5.0) L Globulin 4.4 g/dL Albumin/Globulin Ratio 0.6 (1.0-2.7) L Microbiology Date/Time Source Procedure Growth Status 11/12/20 11:15 Nasopharynx SARS-CoV-2 Antigen (Rapid)(STEPHANIE) - Final Complete Objective HEAD AND NECK: No JVD. LUNGS: Clear. CARDIOVASCULAR: Regular S1 and S2 with no gallop or murmur. ABDOMEN: Soft. EXTREMITIES: No pitting edema. Masoud Puente MD Nov 15, 2020 10:05
--- NOTE | 2020-11-15 10:40 | Surgery Progress Note ---
Surgery Progress Note Subjective Additional Comments no acute events h/h stable no n/v/f/c Objective Last 24 Hour Vital Signs Date Time Temp Pulse Resp B/P (MAP) Pulse Ox O2 Delivery O2 Flow Rate FiO2 11/15/20 09:00 Room Air 11/15/20 08:00 97.3 84 20 131/82 (98) 97 11/15/20 07:44 75 11/15/20 04:29 97.3 76 20 139/86 (103) 97 11/15/20 04:28 86 11/15/20 03:56 97.4 101 20 132/82 (99) 98 11/15/20 00:16 97.4 101 20 132/82 (99) 98 11/15/20 00:00 86 11/15/20 00:00 64 11/14/20 21:40 Room Air 11/14/20 20:30 58 11/14/20 20:00 97.2 60 20 139/87 (104) 99 11/14/20 16:00 87 11/14/20 16:00 98.6 72 19 129/62 (84) 97 11/14/20 12:15 97.3 76 21 141/80 (100) 98 11/14/20 12:00 58 I&O Intake and Output 11/14/20 11/15/20 19:00 07:00 Intake Total 240 ml 240 ml Output Total 500 ml 1200 ml Balance -260 ml -960 ml Intake Oral 240 ml 240 ml Output Urine Total 500 ml 1200 ml # Voids 2 6 # Bowel Movements 1 2 Dressing: dry Wound: clean Cardiovascular: RSR Respiratory: clear Abdomen: soft, non-tender, present bowel sounds, non-distended Extremities: no edema, no tenderness, no cyanosis Laboratory Tests Test 11/15/20 06:50 White Blood Count 4.8 K/UL (4.8-10.8) Red Blood Count 3.62 M/UL (4.70-6.10) L Hemoglobin 10.2 G/DL (14.2-18.0) L Hematocrit 31.6 % (42.0-52.0) L Mean Corpuscular Volume 87 FL (80-99) Mean Corpuscular Hemoglobin 28.0 PG (27.0-31.0) Mean Corpuscular Hemoglobin Concent 32.2 G/DL (32.0-36.0) Red Cell Distribution Width 15.5 % (11.6-14.8) H Platelet Count 198 K/UL (150-450) Mean Platelet Volume 7.2 FL (6.5-10.1) Neutrophils (%) (Auto) 49.6 % (45.0-75.0) Lymphocytes (%) (Auto) 35.3 % (20.0-45.0) Monocytes (%) (Auto) 10.6 % (1.0-10.0) H Eosinophils (%) (Auto) 3.3 % (0.0-3.0) H Basophils (%) (Auto) 1.2 % (0.0-2.0) Sodium Level 143 MMOL/L (136-145) Potassium Level 3.8 MMOL/L (3.5-5.1) Chloride Level 109 MMOL/L (98-107) H Carbon Dioxide Level 28 MMOL/L (21-32) Anion Gap 7 mmol/L (5-15) Blood Urea Nitrogen 31 mg/dL (7-18) H Creatinine 2.4 MG/DL (0.55-1.30) H Estimat Glomerular Filtration Rate 31.8 mL/min (>60) Glucose Level 98 MG/DL (74-106) Uric Acid 7.1 MG/DL (2.6-7.2) Calcium Level 9.2 MG/DL (8.5-10.1) Phosphorus Level 3.0 MG/DL (2.5-4.9) Magnesium Level 1.9 MG/DL (1.8-2.4) Total Bilirubin 0.6 MG/DL (0.2-1.0) Aspartate Amino Transf (AST/SGOT) 11 U/L (15-37) L Alanine Aminotransferase (ALT/SGPT) 16 U/L (12-78) Alkaline Phosphatase 57 U/L (46-116) C-Reactive Protein, Quantitative 6.8 mg/dL (0.00-0.90) H Pro-B-Type Natriuretic Peptide 2606 pg/mL (0-125) H Total Protein 6.9 G/DL (6.4-8.2) Albumin 2.5 G/DL (3.4-5.0) L Globulin 4.4 g/dL Albumin/Globulin Ratio 0.6 (1.0-2.7) L Plan Problems: (1) Renal failure (2) GI bleed Assessment & Plan: 79-year-old male with possible GI bleed. Coffee-ground emesis. Hemoglobin noted. Exam fairly benign. Currently no nausea vomiting fever chills. GI eval for possible upper and lower scope. Trend labs. PRBC as needed. Imaging noted. No acute surgical intervention planned at this time. We will follow the recommendations and available in the event bleeding ongoing and requires intervention. Mr. Miles from from [facility] on 11/11/2020 for rectal bleeding and coffee-ground emesis. On arrival he was hypotensive (87/61). H/H was at his baseline 11.9/38.1. His creatine is slightly elevated from 2.39 to 2.6. He admitted [facility] [place] for further work up for GI bleed. He underwent the EGD a nd colonoscopy today. The findings were atrophic gastritis s.p biopsy of antrum, inconclusive colonoscopy due to suboptimal preparation for visualization. 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 He is currently clear liquid diet per GI. PMH: BPH, CKD, Cardiomegaly, and seizure. Findings: Mr. 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 He uses great facial expression and gestures to express himself. He follows simple commands with visual cues. His voice is intact. Given him thin liquid via straw, he was able to self drink with left hand and swallowed without clinical concerns. Oral mucosa is clear. Interpretation: 1. Functional oropharyngeal swallow 2. 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 Mechanical soft diet and thin liquid if cleared by GI 2. Supportive communication -May benefit from Speech and Language Evaluation at his longterm facility Kei Love Nov 15, 2020 10:40
[2020-11-15 12:06] VITALS: BP 117/78
--- NOTE | 2020-11-15 13:26 | NUR ---
*-*DISCHARGE PLANNED*-* PATIENT HAS BEEN ACCEPTED AND WILL BE DISCHARGED BACK TO: [facility] P: [phone] FOR NURSE TO NURSE REPORT ROOM# 223 [facility] TRAN[facility]ORTATION SET FOR 2;45PM S/W CHRISTINA [id number]. S/W PATIENTS SON ALON WHO IS IN AGREEMENT WITH DISCHARGE PLAN.
--- NOTE | 2020-11-15 14:05 | General Progress Note ---
Subjective ROS Limited/Unobtainable: No Allergies: Coded Allergies: CODEINE (Verified Allergy, Unknown, 11/11/20) Objective Last 24 Hour Vital Signs Date Time Temp Pulse Resp B/P (MAP) Pulse Ox O2 Delivery O2 Flow Rate FiO2 11/15/20 12:06 97.4 81 20 117/78 (91) 98 11/15/20 11:45 68 11/15/20 09:00 Room Air 11/15/20 08:00 97.3 84 20 131/82 (98) 97 11/15/20 07:44 75 11/15/20 04:29 97.3 76 20 139/86 (103) 97 11/15/20 04:28 86 11/15/20 03:56 97.4 101 20 132/82 (99) 98 11/15/20 00:16 97.4 101 20 132/82 (99) 98 11/15/20 00:00 86 11/15/20 00:00 64 11/14/20 21:40 Room Air 11/14/20 20:30 58 11/14/20 20:00 97.2 60 20 139/87 (104) 99 11/14/20 16:00 87 11/14/20 16:00 98.6 72 19 129/62 (84) 97 Intake and Output 11/14/20 11/15/20 19:00 07:00 Intake Total 240 ml 240 ml Output Total 500 ml 1200 ml Balance -260 ml -960 ml Intake Oral 240 ml 240 ml Output Urine Total 500 ml 1200 ml # Voids 2 6 # Bowel Movements 1 2 Laboratory Tests 11/15/20 06:50: White Blood Count 4.8, Red Blood Count 3.62L, Hemoglobin 10.2L, Hematocrit 31.6L , Mean Corpuscular Volume 87, Mean Corpuscular Hemoglobin 28.0, Mean Corpuscular Hemoglobin Concent 32.2, Red Cell Distribution Width 15.5H, Platelet Count 198, Mean Platelet Volume 7.2, Neutrophils (%) (Auto) 49.6, Lymphocytes (%) (Auto) 35.3, Monocytes (%) (Auto) 10.6H, Eosinophils (%) (Auto) 3.3H, Basophils (%) (Auto) 1.2, Sodium Level 143, Potassium Level 3.8, Chloride Level 109H, Carbon Dioxide Level 28, Anion Gap 7, Blood Urea Nitrogen 31H, Creatinine 2.4H, Estimat Glomerular Filtration Rate 31.8, Glucose Level 98, Uric Acid 7.1, Calcium Level 9.2, Phosphorus Level 3.0, Magnesium Level 1.9, Total Bilirubin 0.6, Aspartate Amino Transf (AST/SGOT) 11L, Alanine Aminotransferase (ALT/SGPT) 16, Alkaline Phosphatase 57, C-Reactive Protein, Quantitative 6.8H, Pro-B-Type Natriuretic Peptide 2606H, Total Protein 6.9, Albumin 2.5L, Globulin 4.4, Albumin/Globulin Ratio 0.6L Height (Feet): 6 Height (Inches): 2.00 Weight (Pounds): 180 General Appearance: no apparent distress EENT: normal ENT inspection Neck: supple Cardiovascular: normal rate Respiratory/Chest: decreased breath sounds Abdomen: decreased bowel sounds Extremities: non-tender Assessment/Plan Problem List: (1) GI bleed ICD Codes: K92.2 - Gastrointestinal hemorrhage, unspecified SNOMED: 48604591 Qualifiers: Qualified Codes: K92.2 - Gastrointestinal hemorrhage, unspecified (2) Renal failure ICD Codes: N19 - Unspecified kidney failure SNOMED: 94060117 Qualifiers: Qualified Codes: N19 - Unspecified kidney failure Status: stable Assessment/Plan: s/p EGD and colonoscopy: SUMMARY OF FINDINGS: 1. Atrophic gastritis status post biopsy. 2. Incomplete colonoscopy examination given poor prep. 3. Old blood seen in the colon, possibly from diverticular bleed. 4. Significant diverticulosis of left colon. 5. Internal hemorrhoids. RECOMMENDATIONS: 1. Monitor hemoglobin and hematocrit, transfuse as needed. 2. Followup biopsy results. 3. advance diet to renal Gael Mcleod MD Nov 15, 2020 14:05
--- NOTE | 2020-11-15 15:10 | NUR ---
NURSE NOTES: patient was discharged to [facility] per mds order. report was given to jeni of [facility]. patient room assigned to [facility]. iv line removed and bleeding was stopped. small engine trainer removed and endorsed to MT. VS stable, not in acute distress. belongings endorsed to MT as well. Adair (son) was informed of the discharge. patient is stable.
--- NOTE | 2020-11-15 15:16 | Cardiology Report ---
APPROVED REPORT EXAM: Two-dimensional and M-mode echocardiogram with Doppler and color Doppler. INDICATION Congestive Heart Failure M-Mode DIMENSIONS IVSd1.7 (0.7-1.1cm)Left Atrium (MM)3.2 (1.6-4.0cm) LVDd4.4 (3.5-5.6cm)Aortic Root3.7 (2.0-3.7cm) PWd1.5 (0.7-1.1cm)Aortic Cusp Exc.1.7 (1.5-2.0cm) IVSs2.4 cmEPSS0.6 (>1.0cm) LVDs2.7 (2.5-4.0cm) PWs2.1 cm <Conclusion> Technically difficult study due to poor acoustic windows. Study quality precludes accurate assessment of regional wall motion. Normal left ventricular chamber size, systolic function and wall motion. Left ventricular ejection fraction estimated to be 60 %. No evidence of left ventricular hypertrophy. Anterior Echo-free space, may be due to pericardial fat or effusion. Focal aortic valve sclerosis with adequate cusp excursion. Thickened mitral valve leaflets with normal excursion. Echogenic material noted on posterior mitral valve leaftlet, likely calcification. Mitral annulus and aortic root calcification. Pulmonic valve not well visualized. Normal tricuspid valve structure. IVC is normal in size with physiological collapse. A color flow and spectral Doppler study was performed and revealed: Trace aortic regurgitation. Trace mitral regurgitation. Mitral diastolic velocities suggest mild left ventricular diastolic dysfunction (Grade I). Trace tricuspid regurgitation. Tricuspid systolic velocities suggests peak right ventricular systolic pressure of 14 mmHg. No pulmonic regurgitation present.
--- NOTE | 2020-11-18 15:36 | Discharge Summary ---
Discharge Summary Discharge Summary _ Date of admission: 11/11/2020 Date of discharge: 11/15/[address] Nur History of Present Illness and Brief Hospital Course Mr. Miles is an 79-year-old male with past medical history of BPH, CKD, diabetes mellitus, seizure disorder, and cardiomegaly, who presented to ED from SNF for evaluation of rectal bleeding and coffee-ground emesis. Initial laboratory studies revealed no leukocytosis, stable H&H, elevated BUN/creatinine and unremarkable urinalysis. EKG showed sinus bradycardia without acute ischemic changes. Patient was given IV fluids, Protonix, and Zofran and was admitted to the hospital for further management. Given the history of seizure disorder and risk for aspiration, patient was continued on Keppra. Patient was closely monitored for fever and leukocytosis. Patient remained afebrile and without leukocytosis throughout his hospitalization. The physical exam was fairly benign. No acute surgical intervention was planned at that time. Patient was evaluated with an endoscopy and colonoscopy which revealed atrophic gastritis s/p biopsy of antrum, diverticulosis, and internal hemorrhoids. The colonoscopy exam was incomplete given poor preparation. On pathology report, diffuse intestinal metaplasia was present but was negative for dysplasia and malignancy. Patient's H&H remained stable throughout his hospitalization. Patient was medically stable for discharge and was discharged back to his facility on 11/15/2020. Consultants: Cardiology Dr. [place]ente Pulmonology Dr. South Gastroenterology Dr. Mcleod Surgery Dr. Love Discharge Condition Improved and stable Discharge Activity As tolerated Discharge Diet Mechanical soft diet and thin liquid, renal diet Final diagnoses Cardiomegaly CHF Bradycardia GI bleed, status post EGD/[place] Chronic renal failure Diabetes mellitus with hyperglycemia Gastrointestinal hemorrhage Atrophic gastritis status post biopsy Diverticulosis of left colon Internal hemorrhoids History of seizure disorder I have been assigned to dictate discharge summary for this account. Brenden Patel Nov 18, 2020 15:36
== END 2020-11-15 15:10 | DRG 378 ==
LOC: EDBD 09:32 → EMR 10:10 → 2E 10:35 → EDBEDREQ 14:19
PROC: 0DJD8ZZ Inspection of Lower Intestinal Tract, Via Natural or Artificial Opening Endoscopic (ICD-10-PCS; principal; 2020-11-12 12:10)
PROC: 0DB78ZX Excision of Stomach, Pylorus, Via Natural or Artificial Opening Endoscopic, Diagnostic (ICD-10-PCS; principal; 2020-11-12 12:10)
DX: K57.31 Diverticulosis of large intestine without perforation or abscess with bleeding (principal); D62 Acute posthemorrhagic anemia; I69.351 Hemiplegia and hemiparesis following cerebral infarction affecting right dominant side; N17.9 Acute kidney failure, unspecified; E11.22 Type 2 diabetes mellitus with diabetic chronic kidney disease; N18.9 Chronic kidney disease, unspecified; N40.0 Benign prostatic hyperplasia without lower urinary tract symptoms; E11.65 Type 2 diabetes mellitus with hyperglycemia; K29.41 Chronic atrophic gastritis with bleeding; D63.1 Anemia in chronic kidney disease; Z88.6 Allergy status to analgesic agent; I51.7 Cardiomegaly; I44.0 Atrioventricular block, first degree; K64.8 Other hemorrhoids; I50.9 Heart failure, unspecified; K29.40 Chronic atrophic gastritis without bleeding; G40.909 Epilepsy, unspecified, not intractable, without status epilepticus; I95.9 Hypotension, unspecified; I69.320 Aphasia following cerebral infarction
CPT/HCPCS: 36415; 71045; 76770; 80053; 80061; 81001; 82306; 82607; 82728; 82746; 82977; 83036; 83540; 83550; 83690; 83735; 83880; 84100; 84300; 84443; 84484; 84550; 85025; 85610; 85651; 85730; 86140; 86850; 86900; 86901; 93005; 93306; 94003; 94150; 96361; 96374; 96375; 99285; J2405; J7030